=== PATIENT | male | born 1985 | race Caucasian/White ===

== ENCOUNTER 2019-08-11 18:41 | Emergency (ER) | payer SELFPAY ==
--- NOTE | 2019-08-11 18:42 | XR_ITS ---
WS: [id number] PROCEDURE: XR chest 2V* [id number] CLINICAL INFORMATION: cough COMPARISON: April 23, 2018 FINDINGS: Shallow inspiration. Heart: Cardiomegaly. Lungs: Lungs are clear. No consolidation or pleural fluid. Bones: Normal visualized bony structures. XR/XR chest 2V* [id number] IMPRESSION: Cardiomegaly. No acute chest findings.
[2019-08-11 18:47] VITALS: BP 169/89; PULSE 57; RESP 18; TEMP 36.7; O2SAT 98; BMI 54.2
--- NOTE | 2019-08-11 18:56 | ED_ITS ---
Entered by Marleny Gill, acting as scribe for Ericka Griffin HPI - General Adult General: Chief complaint: General Medical Stated complaint: PRESSURE BEHIND R EYE/COUGH Time Seen by Provider: 08/11/19 18:56 History of Present Illness: HPI narrative: 34 yo m came to the er for pressure behind rt eye and cough. Onset was 1 week ago. Pt states that he has no history of headaches or migranes. Pt states that this has been going on for a week. Pt states that it is a throbbing pain. Pt states that he is light sensative. MD complaint: headache and cough Onset (ago): week(s) (1 week ago) Location: head and chest Radiation: non-radiation Severity: moderate Quality: other (throb) Pain Consistency: constant Relieving factors: none Exacerbating factors: none Associated symptoms: Reports cough; Deny chest pain, confusion, diaphoresis, dyspnea, headache(s), malaise, nausea, rash, palpitations, syncope or vomiting Treatments prior to arrival: none Review of Systems General: Reports: other (negative unless marked) Const: Denies: fever, chills, body aches, fatigue, malaise or diaphoresis Eyes: Denies: change in vision or blurry vision ENMT: Denies: throat pain, painful swallowing, hoarseness, ear pain, ear discharge, Change in hearing or nasal discharge Card: Denies: chest pain, palpitations, irregular heart rhythm, syncope, pre- syncope, shortness of breath on exertion or shortness of breath when lying down Resp: Denies: shortness of breath, productive cough, non-productive cough, wheezing, coughing up blood or chest congestion GI: Denies: abdominal pain, nausea, vomiting, vomiting blood, coffee grounds in vomit, diarrhea, constipation, cramping, blood in stool or black tarry stool : Denies: flank pain, difficulty urinating, painful urination, urinary frequency, urinary urgency, decreased urine ouput, urinary incontinence or blood in urine Musc: Denies: neck pain, back pain, extremity pain, extremity swelling, joint pain, joint swelling, joint warmth or joint stiffness Skin/Breast: Denies: rash, skin tenderness or yellow skin Neuro: Denies: headache, numbness in extremities, weakness in extremities, changes in sensation, lack of coordination, difficulty walking, dizziness, vertigo or confusion Endo: Denies: excessive thirst, tired all the time, cold intolerance, excessive sweating, flushing or hot flashes Jorge L/Lymph: Denies: easy bruising, easy bleeding, petechiae or enlarged lymph nodes All/Imm: Denies: hives, throat swelling, tongue swelling, facial swelling or acute wheezing PFSH ED PFSH: Statuses (acute, chronic, etc) shown below reflect problem list status as previously entered and may not be historically accurate Medical History Diabetes mellitus (Acute) Fibromyalgia (Acute) Gastroenteritis (Acute) Hypertension (Acute) Peptic ulcer disease (Acute) Social History Smoking and tobacco status: never smoked Physical Exam Const: COMMON NORMALS: no apparent distress, oriented x3, no limitations, healthy appearing and well nourished EXAM LIMITATIONS: no altered mental status GENERAL APPEARANCE: cooperative, well kempt and well developed ORIENTATION/CONSCIOUSNESS: Yes awake HENMT: COMMON NORMALS: normocephalic, head/scalp atraumatic, hearing grossly normal bilaterally, external ears normal, EAC's normal, external nose normal and moist oral mucous membranes HEAD & SCALP: normal to inspection, normocephalic and atraumatic FACE & SINUS: normal facial exam and face symmetric NOSE: external nose normal and nares normal EXTERNAL EAR: Yes external ears normal EXTERNAL AUDITORY CANAL: EAC's normal MOUTH: oral and palatal mucosa normal and tongue normal Eye: COMMON NORMALS: PERRL, EOMs intact bilaterally, conjunctivae normal and no scleral icterus GENERAL EYE: normal appearance of both eyes and normal light reflex CONJUNCTIVA: Yes conjunctivae normal SCLERA: sclerae normal CORNEA: Yes corneas normal PUPIL: Yes PERRL DIRECT OPHTHALMOSCOPY: Yes normal light reflex Neck/C-Spine: COMMON NORMALS: full ROM, no lymphadenopathy, supple, no meningeal signs and no JVD GENERAL: Yes normal visual inspection and Yes trac hea midline CERVICAL SPINE: Yes cervical ROM normal Chest: COMMONS NORMALS: inspection of chest normal and palpation of chest normal Resp: COMMON NORMALS: normal respiratory effort, no retractions, no use of accessory muscles and clear to auscultation bilaterally EFFORT & INSPECTION: Yes able to speak in complete sentences AUSCULTATION: clear to auscultation bilaterally Cardio: COMMON NORMALS: no JVD, regular rate, regular rhythm, S1 normal heart sound, S2 normal heart sound, no gallops, no clicks, no murmurs and no rub JUGULAR VENOUS DISTENTION: no JVD RATE: regular rate RHYTHM: regular rhythm HEART SOUNDS: S1 normal and S2 normal GI: COMMON NORMALS: soft to palpation, non-tender, no hepatosplenomegaly and no masses INSPECTION: Yes normal to inspection PALPATION: Yes soft and Yes no hepatosplenomegaly : COMMON NORMALS: Yes no CVA tenderness BLADDER/KIDNEY EXAM: Yes no CVA tenderness Back/Pelvis: COMMON NORMALS: no CVA tenderness, thoracic and lumbar spine normal to inspection, no thoracic nor lumbar tenderness and thoraco-lumbar ROM normal Extremity: COMMON NORMALS: normal to inspection, full ROM, normal capillary refill, no joint enlargement, no clubbing, cyanosis or edema and no calf tenderness Neuro: COMMON NORMALS: oriented x3, CN's II-XII intact bilaterally, moves all extremities, no focal motor deficits and no sensory deficits noted MENINGEAL SIGNS: Yes no meningeal signs Psych: COMMON NORMALS: mental status grossly normal, thought process normal, cooperative, affect normal, speech normal and activity/motor behavior normal APPEARANCE: Yes well kempt SPEECH: Yes normal speech THOUGHT PROCESS: normal thought process Skin: COMMON NORMALS: no rashes or lesions noted, skin turgor normal, no jaundice, no petechiae and no mottling GENERAL SKIN EXAM: no rashes or lesions noted and turgor normal Course ED course: 2124 -right eye pressure averages - 17.5 mmHg. Left eye in comparison is the same and normal. Vital Signs: Vital signs: Vital Signs Temperature 98.1 F 08/11/19 18:47 Pulse Rate 54 L 08/11/19 20:39 Respiratory Rate 16 08/11/19 20:39 Blood Pressure 147/64 08/11/19 20:39 Pulse Oximetry 100 08/11/19 20:39 MDM - General Adult MDM Narrative: Medical decision making narrative: Humble -Khadar is a 34-year-old male who comes in with a complaint of right-sided headache and eye discomfort. Differential includes cluster headache, glaucoma, migraine among many others. We will go ahead and treat his pain and evaluate for the underlying etiology. We will treat for cluster headache and migraine initially to see if that resolves his symptoms. Discharge -patient comes in with right-sided headache. He associated nausea and photophobia. Eye pressure is normal. CT scan reveals sinusitis. He is responded well to oxygen so there may be a cluster headache type component to this. His pain was better after Reglan and typical migraine medications. I wi ll treat him for his sinusitis but he does agree to return if the symptoms change or worsen. I see no life-threatening diagnoses such as meningitis, subarachnoid hemorrhage, temporal arteriolitis or other life or limb threatening diagnosis. Lab Data: Labs: Lab Results 08/11/19 08/11/19 08/11/19 Range/Units 19:23 19:23 20:11 WBC 9.0 (4.0-10.0) 10^3/ uL RBC 4.76 (4.1-5.3) 10^6/u L Hgb 13.4 (11.7-16.6) g/dL Hct 41.1 L (42.0-52.0) % MCV 86.3 (80-94) fL MCH 28.2 (28.0-34.0) pg MCHC 32.6 (30.0-36.0) g/dL RDW 13.5 (12.1-15.1) % Plt Count 310 (130-400) 10^3/c mm MPV 10.1 (7.4-10.4) fL Neut % (Auto) 73.0 % Lymph % (Auto) 18.4 % Maries % (Auto) 6.4 % Eos % (Auto) 1.3 % Baso % (Auto) 0.7 % Neut # (Auto) 6.6 (1.8-7.7) 10^3/u L Lymph # (Auto) 1.7 (0.8-4.8) 10^3/u L Maries # (Auto) 0.6 (0.2-0.9) 10^3/u L Eos # (Auto) 0.1 (0.0-0.8) 10^3/u L Baso # (Auto) 0.1 (0.0-0.1) 10^3/u L Nucleated RBC % (a uto) 0 % Nucleated RBCs # 0.0 /100WBC Sodium 133 L (136-145) mmol/L Potassium 4.3 (3.5-5.1) mmol/L Chloride 96 L (98-107) mmol/L Carbon Dioxide 24 (22-29) mmol/L Anion Gap 17.3 (5-19) BUN 9 (6-20) mg/dL Creatinine 0.6 L (0.7-1.2) mg/dL GFR Calculation 155.2 H (90-130) mL/min Glucose 339 H (74-109) mg/dL Calcium 9.6 (8.5-10.5) mg/dL Total Bilirubin 0.2 (0.15-1.2) mg/dL AST 22 (0-40) U/L ALT 26 (0-41) U/L Alkaline Phosphata se 34 L (40-130) IU/L Total Protein 7.2 (6.6-8.7) g/dL Albumin 4.4 (3.5-5.2) g/dL Globulin 2.8 (1.3-4.6) g/dL Urine Color Yellow (Yellow) Urine Appearance Clear (CLEAR) Urine pH 7 (5-7) Ur Specific Gravit y 1.015 (1.005-1.030) Urine Protein Neg (Negative) Urine Glucose (UA) 4+ H (Normal) Urine Ketones Negative (Negative) Urine Occult Blood Neg (Negative) Urine Nitrate Negative (Negative) Urine Bilirubin Neg (NEGATIVE) Urine Urobilinogen Norm (Negative) mg/dL Ur Leukocyte Linette ase Negative (Negative) Urine RBC None (0-2) /hpf Urine WBC 0-4 H (0-5) /hpf Ur Squamous Epith Cells Rare (0-5) Amorphous Sediment 2+ Urine Bacteria Trace (NONE) Discharge Plan Discharge Patient Disposition: Home, Self-Care Clinical Impression: Migraine Qualifiers: Migraine type: with aura Status migrainosus presence: without status migrainosus Intractability: not intractable Qualified Code(s): G43.109 - Migraine with aura, not intractable, without status migrainosus Sinusitis Qualifiers: Sinusitis location: maxillary Chronicity: acute Recurrence: recurrent Qualified Code(s): J01.01 - Acute recurrent maxillary sinusitis Condition: Stable Prescriptions: New amoxicillin 500 mg capsule 500 mg PO TID 10 Days Qty: 30 RF: 0 Discharge Orders: Discharge Order (Routine); Ordered 08/11/19 Ordered By: Ericka Griffin Referrals: Esthela Badillo, [employer] [Primary Care Provider] - 1-3 days Discharge Diet: Advance as tolerated Discharge Activity: Increase activity as tolerated Patient Instructions: Headache - Migraine (Adult), Cluster Headache (ED), Migraine Headache (ED), Acute Headache (ED) Activity Restrictions/Additional Instructions: Please return to the ER immediately for any of the signs or symptoms listed on your discharge instruction sheets, worsening/changing of your symptoms, you are not getting better as quickly as expected, or for ANY other cause or concerns. Discharge Date/Time: 08/11/19 20:40 Coding Level of Care Code ED Acute Coordinator for Chg Fwd Exam Problem Focused The documentation recorded by the Jairo brown Stephanie Lyn, accurately reflects the service I personally performed and the decisions made by me, Ericka Griffin Aug 11, 2019 18:41
--- NOTE | 2019-08-11 18:59 | PC.NURSE ---
patient c/o cough with green sputum, n/v green, right sided facial pressure
--- NOTE | 2019-08-11 19:02 | CTR_ITS ---
PROCEDURE INFORMATION: Exam: CT Head Without Contrast Exam date and time: 08/11/2019 7:07 PM Age: 34 years old Clinical indication: Pain; Headache not specified; Additional info: Dorsey/ams TECHNIQUE: Imaging protocol: Computed tomography of the head without contrast. Total DLP: 919.06 mGy-cm Radiation optimization: All CT scans at this facility use at least one of these dose optimization techniques: automated exposure control; mA and/or kV adjustment per patient size (includes targeted exams where dose is matched to clinical indication); or iterative reconstruction. COMPARISON: CT head wo con* [id number] 04/26/2017 10:18 PM FINDINGS: Brain: Normal. No hemorrhage. Unremarkable white matter. No mass effect. Ventricles: Normal. No ventriculomegaly. Bones/joints: Unremarkable. No acute fracture. Sinuses: Severe right maxillary sinus disease. Mild left maxillary sinus disease. Severe right ethmoid sinus disease. Moderate right frontal sinus disease. Moderate to severe bilateral paranasal sinus disease. Mastoid air cells: Visualized mastoid air cells are well aerated. Soft tissues: Unremarkable. CT/CT head wo con* [id number] IMPRESSION: 1. Moderate to severe bilateral paranasal sinus disease. 2. No acute intracranial findings. Radiation Dose CTDIVOL = (mGy): DLP = 919.06 (mGy-cm)
[2019-08-11 19:29] LABS: Basophils # 0.1 10^3/uL (0.0-0.1); Basophils % 0.7 %; Eosinophils # 0.1 10^3/uL (0.0-0.8); Eosinophils % 1.3 %; Hematocrit 41.1 % (42.0-52.0); Hemoglobin 13.4 g/dL (11.7-16.6); Lymphocytes # 1.7 10^3/uL (0.8-4.8); Lymphocytes % 18.4 %; Mean Corpuscular HGB Conc 32.6 g/dL (30.0-36.0); Mean Corpuscular Hemoglobin 28.2 pg (28.0-34.0); Mean Corpuscular Volume 86.3 fL (80-94); Mean Platelet Volume 10.1 fL (7.4-10.4); Monocytes # 0.6 10^3/uL (0.2-0.9); Monocytes % 6.4 %; Neutrophils # 6.6 10^3/uL (1.8-7.7); Nucleated Red Blood Cells % 0 %; Platelet Count 310 10^3/cmm (130-400); Red Blood Count 4.76 10^6/uL (4.1-5.3); Red Cell Distribution Width 13.5 % (12.1-15.1)
[2019-08-11] MEDS: ondansetron 2 mg/ML SDV 2 mL 4 MG IVP (19:30)
[2019-08-11] MEDS: sodium chloride 0.9% 1,000 ML 999 ML IV (19:30)
[2019-08-11] MEDS: metoclopramide 5 mg/mL SDV 2 mL 10 MG IV (19:30)
[2019-08-11 19:44] LABS: Alanine Aminotransferase 26 U/L (0-41); Albumin Level 4.4 g/dL (3.5-5.2); Alkaline Phosphatase 34 IU/L (40-130); Anion Gap 17.3 (5-19); Aspartate Amino Transferase 22 U/L (0-40); Blood Urea Nitrogen 9 mg/dL (6-20); Calcium 9.6 mg/dL (8.5-10.5); Carbon Dioxide 24 mmol/L (22-29); Chloride 96 mmol/L (98-107); Globulin 2.8 g/dL (1.3-4.6); Glomerular Filtration Rate 155.2 mL/min (90-130); Glucose 339 mg/dL (74-109); Potassium 4.3 mmol/L (3.5-5.1); Sodium 133 mmol/L (136-145); Total Bilirubin 0.2 mg/dL (0.15-1.2); Total Protein 7.2 g/dL (6.6-8.7)
[2019-08-11] MEDS: ketorolac 30 mg/mL INJ 10 MG IVP (20:13)
[2019-08-11 20:39] VITALS: BP 147/64; PULSE 54; RESP 16; O2SAT 100
[2019-08-11 20:41] LABS: Protein Urine Neg (Negative); Specific Gravity, Urine 1.015 (1.005-1.030); Urine Appearance Clear (CLEAR); Urine Color Yellow (Yellow); pH Urine 7 (5-7)
[2019-08-11 20:42] LABS: Add Urine Culture? No; Amorphous Sediment Urine 2+; Bacteria Urine TRACE; Bilirubin Urine Neg (NEGATIVE); Blood Urine Neg (Negative); Glucose Urine UA 4+ (Normal); Ketones Urine Negative (Negative); Leukocyte Esterase Urine Negative (Negative); Nitrate Urine Negative (Negative); Squamous Epithelial Cell Urine RARE (0-5); Urobilinogen Urine Norm (Negative); WBC Urine 0-4 /hpf (0-5)
== END 2019-08-11 20:40 | disposition home or self-care (01) ==
PROVIDERS: Emergency Provider Emergency Medicine; PCP Nurse Practitioner Family
DX: G43.109 Migraine with aura, not intractable, without status migrainosus (principal); J01.01 Acute recurrent maxillary sinusitis; E11.9 Type 2 diabetes mellitus without complications; I10 Essential (primary) hypertension
CPT/HCPCS: 70450; 71046; 80053; 81001; 85025; 96360; 96365; 96374; 99282; J0131; J1885; J2405; J2765; J7030

== ENCOUNTER 2020-02-07 16:25 | Emergency (ER) | payer SELFPAY ==
[2020-02-07 16:52] VITALS: BP 162/87; PULSE 57; RESP 15; TEMP 36.7; O2SAT 94; BMI 61.0
--- NOTE | 2020-02-07 17:05 | ED_ITS ---
HPI - Extremity Problem General: Chief complaint: Extremity Problem,Nontraumatic Stated complaint: right arm pain Time Seen by Provider: 02/07/20 17:05 History of Present Illness: HPI Narrative: Patient is a 35-year-old male who comes to the ED with right arm pain. Pain started just prior to arrival. Patient says he started feeling of muscle cramp move up his entire right arm when reaching for remote, so he straighten his arm out to help relieve muscle cr amp. He then wrapped his right arm along the straight stick-like object to splinted and to keep the arm straight. Patient reports just feeling a pop in right elbow while his arm was straight. He comes to the ED now with pain in his right elbow and and right wrist. He reports pain with any movement. Patient also reports having chronic right shoulder pain, but states this is different pain than his right shoulder pain. Associated symptoms: Deny chest pain, fever(s) or rash Review of Systems Const: Denies: fever(s), chills or fatigue Eyes: Denies: change in vision or eye discomfort ENMT: Denies: throat pain, odynophagia, nasal discharge or nasal congestion Card: Denies: chest pain, palpitations, edema, swelling of feet/ankles, dyspnea on exertion or orthopnea Resp: Denies: dyspnea, productive cough or non-productive cough GI: Denies: abdominal pain, nausea, vomiting, diarrhea, constipation or hematochezia : Denies: flank pain, difficulty urinating, dysuria or hematuria Musc: Reports: extremity pain (Right arm muscle pain.); Denies: neck pain, back pain or extremity swelling Skin/Breast: Denies: rash or new lesions Neuro: Denies: headache(s), numbness in extremities or weakness in extremities [facility] PFSH: Medical History Diabetes mellitus Fibromyalgia Gastroenteritis Hypertension Peptic ulcer disease Social History Smoking and tobacco status: never smoked Alcohol intake: never Substance/Drug Use: never Physical Exam Const: COMMON NORMALS: no acute distress, patient oriented x3 and alert GENERAL APPEARANCE: cooperative and comfortable NUTRITIONAL APPEARANCE: obese HENMT: COMMON NORMALS: normocephalic HEAD & SCALP: normocephalic MOUTH: Normal oral and palatal mucosa present THROAT: posterior oropharynx normal and uvula midline Neck/C-Spine: COMMON NORMALS: supple GENERAL: Yes normal visual inspection Resp: COMMON NORMALS: normal respiratory effort, No retractions, No use of accessory muscles and clear to auscultation bilaterally AUSCULTATION: clear to auscultation bilaterally Cardio: COMMON NORMALS: regular rate, regular rhythm, S1 normal heart sound present, S2 normal heart sound present, No gallops present (Cardio), No clicks present (Cardio), No murmurs present (Cardio) and Peripheral pulses 2+ th roughout RATE: regular rate RHYTHM: regular rhythm HEART SOUNDS: S1 normal heart sound present and S2 normal heart sound present PERIPHERAL PULSES: Peripheral pulses 2+ throughout GI: COMMON NORMALS: Normal to inspection, nondistended, normoactive bowel sounds present, Soft to palpation, non-tender and no masses PALPATION: Yes Soft to palpation : COMMON NORMALS: Yes no CVA tenderness BLADDER/KIDNEY EXAM: Yes no CVA tenderness Back/Pelvis: COMMON NORMALS: no CVA tenderness Extremity: COMMON NORMALS: normal to inspection and no pedal edema OTHER: Right arm was normal to inspection. Radial pulse 2+ and sensation was intact throughout the arm. No tenderness upon palpation on the arm. No ecchymosis, er ythema or warmth. Patient states he cannot move his arm because of the muscle pain. Neuro: COMMON NORMALS: patient oriented x3 and moves all extremities SENSORIUM/ORIENTATION: Yes alert Skin: COMMON NORMALS: no rashes or lesions noted GENERAL SKIN EXAM: no rashes or lesions noted and dry skin Course Vital Signs: Vital signs: Vital Signs Temperature 98.0 F 02/07/20 16:52 Pulse Rate 57 L 02/07/20 16:52 Respiratory Rate 15 02/07/20 16:52 Blood Pressure 162/87 02/07/20 16:52 Pulse Oximetry 94 02/07/20 16:52 MDM - Extremity (Nontraumatic) MDM Narrative: Medical decision making narrative: Patient is a 35-year-old male comes to the ED with right arm pain. He denies any trauma, fall or injury to cause pain. He described pain in right arm as a muscle cramp. Exam of right arm was normal. Ultrasound of right upper extremity showed no blood clots or DVTs. X-ray of right elbow and right wrist showed no acute fractures or findings. Patient diagnosed with right arm pain and was given a dose of Toradol and Norflex while here in the unit. He was told to rest it and follow-up with PCP in 7 to 10 days for reevaluation. I sent him home with a prescription for Robaxin. Return to the ED if symptoms worsen. Patient understood and agreed with plan. Imaging Data^: US Vascular: Attestation: I personally reviewed and interpreted this imaging study as follows: Radiologist's impression: Ultrasound of right upper extremity prelim report- showed no blood clots or DVTs. Xray Ortho: Attestation: I personally reviewed and interpreted this imaging study as follows: My impression: X-ray of elbow and wrist of right arm showed no acute fractures or findings. Discharge Plan Discharge Patient Disposition: Home, Self-Care Clinical Impression: Arm pain, right Condition: Stable Prescriptions: New Robaxin-750 750 mg tablet 750 mg PO Q8H Qty: 15 RF: 0 No Action ibuprofen 200 mg Tablet 200 mg PO Q6H PRN (Reason: Pain) RF: 0 Discharge Orders: Discharge Order (Routine); Ordered 02/07/20 Ordered By: Aly Pond Referrals: FREDA Badillo, [place] [Primary Care Provider] - Discharge Diet: Regular Discharge Activity: Increase activity as tolerated Patient Instructions: Muscle Cramp (ED) Activity Restrictions/Additional Instructions: Follow-up with medical provider as directed in 5-7 days. Take medications as prescribed. I am sending you home with a prescription for muscle relaxer. Remember muscle relaxers can cause some drowsiness so take at night before bed and if you use during the day use with caution. Drink plenty of fluids and stay hydrated. Return to the ER or your medical provider if condition worsens. Please read and understand discharge instructions. If any questions, please ask. Discharge Date/Time: 02/07/20 19:56 Coding Level of Care Code ED Mortgage Counselor for Mendez Hargrove Exam Comprehensive
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
--- NOTE | 2020-02-07 17:31 | XRR_ITS ---
PROCEDURE INFORMATION: Exam: XR Right Elbow Exam date and time: 02/07/2020 6:40 PM Age: 35 years old Clinical indication: Right; Patient HX: C/O RT elbow and wrist pain. [place] a pop TECHNIQUE: Imaging protocol: XR Right elbow. Views: 3 or more views. COMPARISON: No relevant prior studies available. FINDINGS: Bones/joints: No acute bony injury or malalignment. Soft tissues: Unremarkable soft tissues. XR/XR elbow RT min 3V* [id number] IMPRESSION: No acute bony injury or malalignment.
--- NOTE | 2020-02-07 17:31 | USCV_ITS ---
Khadar Wolfe II Age: 35 Gender: M : 1985 Exam Date: 02/07/2020 18:01 Ordering Phys: Aly Pond Technologist: Sharad Moreno [place] [facility] [place]: RT ARM PAIN HISTORY: Upper extremity pain. PROCEDURES: Venous duplex imaging was performed in only the right upper extremity. The following venous structures were evaluated: internal jugular vein, subclavian vein, axillary vein, and brachial veins. In addition, the basilic vein, cephalic vein, radial vein, and ulnar vein. Serial compression, augmentation maneuvers, and spectral Doppler flow evaluation were performed. FINDINGS: No evidence of deep vein thrombosis or superficial thrombophlebitis in the right upper extremity. CONCLUSIONS No evidence of venous thrombosis in the above-mentioned identifiable veins Dr Tania Mathews MD [facility] (Electronically Signed) Final Date: 08 February 2020 08:51 S
[2020-02-07] MEDS: HYDROcodone-acetaminophen 7.5-325 mg Tablet 1 TAB PO (18:10)
[2020-02-07] MEDS: orphenadrine 30 mg/mL Inj 2 mL 60 MG IM (19:43)
[2020-02-07] MEDS: ketorolac 60 mg/2 mL INJ IM (19:45)
== END 2020-02-07 19:56 | disposition home or self-care (01) ==
PROVIDERS: Emergency Provider Physician Assistant; PCP Nurse Practitioner Family
DX: M79.601 Pain in right arm (principal); E11.9 Type 2 diabetes mellitus without complications; I10 Essential (primary) hypertension
CPT/HCPCS: 12345; 73080; 73110; 93971; 96372; 99281; 99283; J1885; J2360

== ENCOUNTER → 2020-09-19 13:25 | Outpatient (BNVA) | payer OTHER, SELFPAY | PROVIDERS: PCP Nurse Practitioner Family; Visit Provider Nurse Practitioner Family | DX: Z20.828 Contact with and (suspected) exposure to other viral communicable diseases (principal) | CPT/HCPCS: 87635 ==

== ENCOUNTER 2021-03-31 10:36 | Emergency (ER) | payer SELFPAY ==
[2021-03-31 10:54] VITALS: BP 171/97; PULSE 59; RESP 18; TEMP 36.9; O2SAT 96; BMI 51.2
[2021-03-31 11:03] VITALS: BP 171/97; PULSE 56; RESP 18; O2SAT 96
--- NOTE | 2021-03-31 11:28 | CTR_ITS ---
PROCEDURE INFORMATION: Exam: CT Abdomen And Pelvis Without Contrast Exam date and time: 03/31/2021 11:28 AM Age: 36 years old Clinical indication: Other: Hematuria TECHNIQUE: Imaging protocol: Computed tomography of the abdomen and pelvis without contrast. Radiation optimization: All CT scans at this facility use at least one of these dose optimization techniques: automated exposure control; mA and/or kV adjustment per patient size (includes targeted exams where dose is matched to clinical indication); or iterative reconstruction. COMPARISON: CR XR chest 2V* [id number] 08/11/2019 7:06 PM RADIATION DOSE METRICS: Total DLP (mGy-cm): 2177.04 FINDINGS: Liver: Fatty liver. No liver mass seen. Gallbladder and bile ducts: Normal. No calcified stones. No ductal dilation. Pancreas: Normal. No ductal dilation. Spleen: Normal. No splenomegaly. Adrenal glands: Normal. No mass. Kidneys and ureters: There is a 1.5 cm cyst in the upper pole of the left kidney. There is a punctate nonobstructing calcification in the right kidney. There is no hydronephrosis or hydroureter. Stomach and bowel: Unremarkable. No obstruction. No mucosal thickening. Appendix: The appendix is identified and is normal. Intraperitoneal space: Unremarkable. No free air. No significant fluid collection. Vasculature: Unremarkable. No abdominal aortic aneurysm. Lymph nodes: Unremarkable. No enlarged lymph nodes. Urinary bladder: Unremarkable as visualized. Reproductive: Unremarkable as visualized. Bones/joints: Unremarkable. No acute fracture. Soft tissues: Unremarkable. CT/CT kidney stone [id number] IMPRESSION: 1. No acute abnormality. 2. Nephrolithiasis with a punctate nonobstructing calcification in the right kidney. 3. Probable cyst in the upper pole of the left kidney measuring 1.5 cm in diameter. 4. Fatty liver. COMMENTS: Consistent with the [employer]'s Incidental Findings Committee white paper (J Am Ammon Radiol 2018): Any incidental renal lesion less than 1 cm or classified as too small to characterize, or any incidental cystic renal lesion characterized as simple-appearing, is likely benign. No follow-up imaging is recommended for these lesions per consensus recommendations based on imaging criteria. Radiation Dose CTDIVOL = (mGy): DLP = 2177.04 (mGy-cm)
--- NOTE | 2021-03-31 11:45 | ED_ITS ---
HPI - Male Genitourinary General: Chief complaint: Urogenital-Male Stated complaint: PAINFUL BURNING ITCHY URINATION WITH BLEEDING Time Seen by Provider: 03/31/21 10:55 History of Present Illness: HPI Narrative: Patient states he thinks he has kidney stones. States that he has some bleeding from them his penis. Says he passed some kidney stones here in the last 3 months and did not see a primary care in ER but he said he could hear the cklink sound of the stones in the toilet. Patient denies ever have sexual encounters life and denies mechanical trauma. Does have some whitish material 10 of his penis Complaint: penile discharge and dysuria Onset (ago): hour(s) Duration: constant Location: penis Radiation: right flank and left flank Severity: mild Severity scale (1-10): 1 Associated symptoms: Reports dysuria and hematuria; Deny nausea or vomiting Review of Systems Const: Denies: fever(s), chills or body aches Eyes: Denies: change in vision or blurry vision ENMT: Denies: throat pain or nasal congestion Card: Denies: chest pain or dyspnea on exertion Resp: Denies: dyspnea, productive cough or non-productive cough GI: Denies: abdominal pain, nausea or vomiting : Reports: flank pain, dysuria and hematuria; Denies: difficulty urinating or urinary frequency Musc: Reports: back pain (Chronic); Denies: extremity pain Skin/Breast: Denies: rash Neuro: Denies: headache(s) Psych: Denies: anxiety or depression Jorge L/Lymph: Denies: easy bruising PFSH ED PFSH: Medical History (Updated 03/31/21 @ 13:27 by PARIS Goodwin) Diabetes mellitus Fibromyalgia Gastroenteritis Hypertension Peptic ulcer disease Social History Smoking and tobacco status: never smoked Alcohol intake: never Physical Exam Const: COMMON NORMALS: no acute distress, average body habitus and patient oriented x3 HENMT: COMMON NORMALS: normocephalic HEAD & SCALP: normal to inspection and normocephalic FACE & SINUS: normal facial exam Eye: COMMON NORMALS: conjunctivae normal GENERAL EYE: appearance normal, both eyes and all related structures CONJUNCTIVA: Yes conjunctivae normal Neck/C-Spine: COMMON NORMALS: no JVD Chest: COMMONS NORMALS: normal inspection of the chest Resp: COMMON NORMALS: normal respiratory effort Cardio: COMMON NORMALS: no JVD, regular rate and regular rhythm RATE: regular rate RHYTHM: regular rhythm GI: INSPECTION: Yes normal to inspection (Obese) : BLADDER/KIDNEY EXAM: Yes CVA tenderness bilateral Back/Pelvis: GENERAL BACK: Yes CVA tenderness Extremity: COMMON NORMALS: normal to inspection and full ROM Neuro: COMMON NORMALS: patient oriented x3 Course Vital Signs: Vital signs: Vital Signs Temperature 98.5 F 03/31/21 10:54 Pulse Rate 56 L 03/31/21 13:57 Respiratory Rate 18 03/31/21 13:57 Blood Pressure 168/84 03/31/21 13:57 Pulse Oximetry 96 03/31/21 13:57 MDM - Male MDM Narrative: Medical decision making narrative: Patient with UTI and uncontrolled diabetes. Patient states he has not been able for to go to Dr. Get his medications but has been told opacities diabetic. CT renal did not show any stones in distal urinary bladder. Does have occult blood in each kidney. Patient does have a job which she said he was supposed be provided insurance that 90 days any his past that so is not checked with human resources so we will do that this week and see about getting appoint with Dr. Villalba at [facility]. Patient encouraged to follow diabetic diet take medication as directed follow-up and get a repeat urine sample done if he has any worsening symptoms he can return here. Patient had no further questions. Lab Data: Labs: Lab Results 03/31/21 03/31/21 Range/Units 12:03 12:49 POC Glucose 278 H (70-110) mg/dL Urine Color Yellow (Yellow) Urine Appearance Cloudy (CLEAR) Urine pH 5 (5-7) Ur Specific Gravit y 1.020 (1.005-1.030) Urine Protein Neg (Negative) Urine Glucose (UA) 4+ H (Normal) Urine Ketones 1+ H (Negative) Urine Blood 2+ H (Negative) Urine Nitrate Negative (Negative) Urine Bilirubin Neg (Negative) Urine Urobilinogen Norm (Negative) mg/dL Ur Leukocyte Linette ase Trace H (Negative) Urine RBC 5-10 H (0-2) /hpf Urine WBC 80-100 H (0-5) /hpf Ur Squamous Epith Cells Rare (0-5) /hpf Amorphous Sediment Not Reportable Urine Bacteria 4+ H (NONE) /hpf Urine Mucus 1+ /hpf Discharge Plan Discharge Patient Disposition: Home Clinical Impression: Acute UTI Diabetes mellitus type 2, uncontrolled Qualifiers: Glycemic state: with hyperglycemia Qualified Code(s): E11.65 - Type 2 diabetes mellitus with hyperglycemia Condition: Stable Prescriptions: New cephalexin 500 mg capsule 500 mg PO Q8H 7 Days Qty: 21 RF: 0 metformin 500 mg tablet 500 mg PO BID Qty: 20 RF: 0 No Action ibuprofen 200 mg Tablet 200 mg PO Q6H PRN (Reason: Pain) RF: 0 Robaxin-750 750 mg tablet 750 mg PO Q8H Qty: 15 RF: 0 Discharge Orders: Discharge ED (Routine); Ordered 03/31/21 Ordered By: Julius Kincaid Referrals: FREDA Badillo, PARIS [Primary Care Provider] - Discharge Diet: As Directed Discharge Activity: Increase activity as tolerated Patient Instructions: Diabetes and Diet, Urinary Tract Infection in Men (ED), Diabetes Mellitus Type 2 in Adults (ED) Activity Restrictions/Additional Instructions: Follow-up with medical provider as directed. Take medications as prescribed. Return to the ER or your medical provider if condition worsens. Please read and understand discharge instructions. If any questions ask please. It is very important that you get in with your primary care provider here in the next week or 2. Get your blood sugars under control. Take your medication. Check your sugars with a meter at home. Get a repeat on your urine to make sure infection is gone away. Dr. Villalba at [facility] [place] is excepting new patients. Coding Level of Care Code ED Escrow Closer for Mendez Harg[place] Exam Comprehensive
[2021-03-31 12:02] VITALS: BP 170/99; PULSE 58; RESP 18; O2SAT 95
[2021-03-31 12:41] LABS: Glucose Urine UA 4+ (Normal); Ketones Urine 1+ (Negative); Protein Urine Neg (Negative); Urine Appearance Cloudy (CLEAR); Urine Color Yellow (Yellow); pH Urine 5 (5-7)
[2021-03-31 12:42] LABS: Add Urine Microscopic? YES; Bilirubin Urine Neg (Negative); Blood Urine 2+ (Negative); Leukocyte Esterase Urine Trace (Negative); Nitrate Urine Negative (Negative); Urobilinogen Urine Norm (Negative)
[2021-03-31 12:44] LABS: Add Urine Culture? Yes; Bacteria Urine 4+ /hpf; Mucus Urine 1+ /hpf; Squamous Epithelial Cell Urine RARE /hpf (0-5); WBC Urine 80-100 /hpf (0-5)
[2021-03-31 12:53] LABS: Glucose Point of Care 278 mg/dL (70-110)
[2021-03-31 13:08] VITALS: BP 152/77; PULSE 50; RESP 18; O2SAT 97
[2021-03-31] MEDS: cephALEXin 500 mg Capsule PO (13:56)
[2021-03-31 13:57] VITALS: BP 168/84; PULSE 56; RESP 18; O2SAT 96
== END 2021-03-31 13:57 | disposition home or self-care (01) ==
PROVIDERS: Emergency Provider Nurse Practitioner Family; PCP Nurse Practitioner Family
DX: N39.0 Urinary tract infection, site not specified (principal); E11.65 Type 2 diabetes mellitus with hyperglycemia; I10 Essential (primary) hypertension
CPT/HCPCS: 36416; 74176; 81001; 82962; 87086; 87491; 87591; 99283

== ENCOUNTER 2021-12-29 14:55 | Emergency (ER) | payer SELFPAY ==
[2021-12-29 16:05] VITALS: BP 181/110; PULSE 54; RESP 16; TEMP 36.4; O2SAT 96; BMI 48.5
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
[2021-12-29 19:12] VITALS: RESP 20
[2021-12-29] MEDS: morphine 4 mg/mL SDV 1 mL IM (19:12)
[2021-12-29] MEDS: ondansetron 2 mg/ML SDV 2 mL 4 MG IM (19:13)
[2021-12-29 21:14] VITALS: BP 138/82; PULSE 48; RESP 18; O2SAT 96
== END 2021-12-29 21:13 | disposition home or self-care (01) ==
PROVIDERS: Emergency Provider Emergency Medicine
DX: S29.012A Strain of muscle and tendon of back wall of thorax, initial encounter (principal); V89.2XXA Person injured in unspecified motor-vehicle accident, traffic, initial encounter; Y92.410 Unspecified street and highway as the place of occurrence of the external cause
CPT/HCPCS: 71045; 72128; 72131; 74176; 96372; 99284; J2270; J2405

== ENCOUNTER 2022-05-22 16:24 | Emergency (ER) | payer MEDICAID, SELFPAY ==
[2022-05-22 16:30] VITALS: BP 170/88; PULSE 59; RESP 20; TEMP 37.7; O2SAT 98; BMI 45.8
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
--- NOTE | 2022-05-22 17:25 | ED_ITS ---
HPI - Neuro Symptoms/Deficit General: Chief Complaint: Eye Problems Stated Complaint: Possible stroke, sent from eye dr Time Seen by Provider: 05/22/22 17:24 History of Present Illness: Mr. Wolfe is a 37-year-old gentleman with history of hypertension and diabetes presenting to the emergency department due to visual disturbance and headache. Onset of symptoms was acute approximately 3 days ago. He endorses double vision which is not improved by closing either eye associated with posterior headache and unsteady feeling. He has felt nauseous secondary to his lightheaded and unsteady feeling however does not have significant abdominal pain. Intensity symptoms is moderate to severe. Course has persisted. Apparently he was seen by an eye doctor today and referred to the ER for further management as the patient's eyes did not appear to be the problem. Onset (ago): day(s) Severity: moderate Exacerbating factors: other On Anticoagulants: No Review of Systems General: Reports: 10 or more systems reviewed and unremarkable except in HPI and below PFSH ED PFSH: Medical History (Updated 05/30/22 @ 00:00 by ) Diabetes mellitus Fibromyalgia Gastroenteritis Hypertension Peptic ulcer disease Social History Smoking and tobacco status: never smoked Alcohol intake: never Physical Exam Const: COMMON NORMALS: patient oriented x3 and alert GENERAL APPEARANCE: cooperative and well developed HENMT: COMMON NORMALS: normocephalic and atraumatic HEAD & SCALP: normocephalic and atraumatic THROAT: posterior oropharynx normal Eye: COMMON NORMALS: conjunctivae normal CONJUNCTIVA: Yes conjunctivae normal SCLERA: sclerae normal Neck/C-Spine: COMMON NORMALS: supple GENERAL: Yes trachea midline Resp: COMMON NORMALS: normal respiratory effort EFFORT & INSPECTION: Yes able to speak in complete sentences Cardio: COMMON NORMALS: regular rate and regular rhythm RATE: regular rate RHYTHM: regular rhythm GI: COMMON NORMALS: Soft to palpation PALPATION: Yes Soft to palpation and No Tenderness to palpation present (GI) PERCUSSION: normal to percussion Extremity: GENERAL: Yes normal exam except as noted and No edema Neuro: COMMON NORMALS: patient oriented x3, CN's II-XII intact bilaterally, m oves all extremities, no focal motor deficits and no sensory deficits noted SENSORIUM/ORIENTATION: Yes alert and No Orientation impaired Psych: COMMON NORMALS: mental status grossly normal and Normal thought process present THOUGHT PROCESS: Normal thought process present Course Vital Signs: Vital signs: Vital Signs Temperature 99.9 F H 05/22/22 16:30 Pulse Rate 55 L 05/22/22 21:44 Respiratory Rate 16 05/22/22 21:44 Blood Pressure 129/55 05/22/22 21:44 Pulse Oximetry 98 05/22/22 21:44 Oxygen Delivery Me thod 05/22/22 16:30 MDM - Neuro Symptoms/Deficit Medical Decision Making 37-year-old gentleman presenting with visual disturbance. No other neurologic deficits appreciated on exam. EKG shows sinus rhythm with nonspecific ST segment abnormalities, no STEMI. No significant hematologic abnormality. Metabolic panel with mild hyperglycemia though no evidence of DKA. CT head negative for acute intracranial pathology or evidence of stroke. Given duration of symptoms and extent of symptoms I would expect that CT would show evidence of pathology if central line cause. Somewhat improved with migraine cocktail and IV fluids. Exact etiology of patient's symptoms is unclear though may be related to complex headache. The results of ED evaluation were discussed with the patient including prescriptions and/or symptomatic cares (if applicable) including appropriate and responsible use, followup plan, and return precautions. The patient verbalized understanding and felt safe for discharge. Medical Records I reviewed the patient's medical records. Lab Data I reviewed the patient's lab results. : 05/22/22 18:33 05/22/22 18:[address] 05/22/22 16:59 IMPRESSION: No acute intracranial abnormality. Laboratory Results WBC 5.7 10^3/uL (4.0-10.0) 05/22/22 18: RBC 4.86 10^6/uL (4.1-5.3) 05/22/22 18:33 Hgb 14.0 g/dL (11.7-16.6) 05/22/22 18: Hct 42.7 % (42.0-52.0) 05/22/22 18: MCV 87.9 fl (80-94) 05/22/22 18:33 MCH 28.8 pg (28.0-34.0) 05/22/22 18: MCHC 32.8 g/dL (30.0-36.0) 05/22/22 18: RDW 13.8 % (12.1-15.1) 05/22/22 18:33 Plt Count 236 10^3/cmm (130-400) 05/22/22 18: MPV 10.3 fL (7.4-10.4) 05/22/22 18:33 Neut % (Auto) 80.2 % 05/22/22 18: Lymph % (Auto) 13.2 % 05/22/22 18: [place] % (Auto) 5.6 % 05/22/22 18: Eos % (Auto) 0.2 % 05/22/22 18: Baso % (Auto) 0.3 % 05/22/22 18: Neut # (Auto) 4.60 10^3/uL (1.8-7.7) 05/22/22 18: Lymph # (Auto) 0.8 10^3/uL (0.8-4.8) 05/22/22 18: [place] # (Auto) 0.3 10^3/uL (0.2-0.9) 05/22/22 18: Eos # (Auto) 0.0 10^3/uL (0.0-0.8) 05/22/22 18: Baso # (Auto) 0.0 10^3/uL (0.0-0.1) 05/22/22 18: Nucleated RBC % (auto) 0 % 05/22/22 18: Nucleated RBCs # 0.0 /100WBC 05/22/22 18:33 Sodium 132 mmol/L (136-145) L 05/22/22 18: Potassium 3.9 mmol/L (3.5-5.1) 05/22/22 18: Chloride 96 mmol/L (98-107) L 05/22/22 18:33 Carbon Dioxide 25 mmol/L (22-29) 05/22/22 18: Anion Gap 14.9 (5-19) 05/22/22 18: BUN 5 mg/dL (6-20) L 05/22/22 18:33 Creatinine 0.6 mg/dL (0.7-1.2) L 05/22/22 18:33 GFR Calculation 152.4 mL/min (90-130) H 05/22/22 18: Glucose 141 mg/dL (65-115) H 05/22/22 18:33 POC Glucose 163 mg/dL (70-110) H 05/22/22 17:39 Calculated Osmolality 274 mOsm/kg (285-295) L 05/22/22 18:33 Calcium 9.4 mg/dL (8.5-10.5) 05/22/22 18:33 Total Bilirubin 0.3 mg/dL (0.15-1.2) 05/22/22 18:33 AST 19 U/L (0-40) 05/22/22 18:33 ALT 30 U/L (0-41) 05/22/22 18:33 Alkaline Phosphatase 34 U/L (40-130) L 05/22/22 18:33 Troponin T Baseline 10 ng/L (0-15) 05/22/22 18:33 Troponin T 120 Minute 10.65 ng/L (0-15) 05/22/22 20:10 Delta Troponin T 0.65 ABS# (0-10) 05/22/22 20:10 Total Protein 7.3 g/dL (6.6-8.7) 05/22/22 18:33 Albumin 4.5 g/dL (3.5-5.2) 05/22/22 18:33 Globulin 2.8 g/dL (1.3-4.6) 05/22/22 18:33 TSH 1.03 uIU/mL (0.27-4.20) 05/22/22 18:33 Discharge Plan Discharge Patient Disposition: Home Clinical Impression: Double vision with both eyes open, Headache, Dizziness Condition: Stable Prescriptions: New meclizine 25 mg tablet 25 mg PO TID PRN (Reason: dizziness) Qty: 10 0RF No Action metformin 500 mg tablet 500 mg PO BID Qty: 20 0RF ibuprofen 200 mg Tablet 200 mg PO Q6H PRN (Reason: Pain) Robaxin-750 750 mg tablet 750 mg PO Q8H Qty: 15 0RF methocarbamol 750 mg tablet 750 mg PO Q6H PRN (Reason: spasms) Qty: 20 0RF Naprosyn 500 mg tablet 500 mg PO BID PRN (Reason: pain) Qty: 20 0RF Discharge Orders: Discharge ED (Routine); Ordered 05/22/22 Ordered By: Kamron Hardy Discharge Diet: Usual diet Discharge Activity: Increase activity as tolerated Patient Instructions: Acute Headache (ED), Dizziness (ED), Diplopia (ED) Activity Restrictions/Additional Instructions: Thank you for visiting the emergency department. You were seen evaluated for headache, visual disturbance, dizziness. The exact cause of your symptoms is unclear though does not appear to need hospitalization at this time. I will message case management for follow-up. Please return to the emergency department for worsening symptoms, any new neurologic symptoms, or anything else that you are concerned about a feel needs emergency department evaluation. 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
--- NOTE | 2022-05-22 17:30 | ECG_ITS ---
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 Measurements Intervals [place] Rate: 58 P: 63 [place]: 158 QRS: 6 QRSD: 97 T: 1 QT: 426 QTc: 420 Interpretive Statements SINUS BRADYCARDIA POSSIBLE LEFT ATRIAL ENLARGEMENT [-0.1mV P-WAVE IN V1/V2] POSSIBLE RIGHT VENTRICULAR CONDUCTION DELAY [RSR (QR) IN V1/V2] POSSIBLE LEFT VENTRICULAR HYPERTROPHY [VOLTAGE CRITERIA PLUS LAE OR QRS WIDENING] No previous ECG available for comparison Electronically Signed On 05-23-2022 11:49:53 CDT by Aleida Betancourt M.D. [email or web address] community hospitalBeijing Her[facility] Advertisingwilson [facility] hospital.[employer]/store/OM/[id number]
[2022-05-22 17:42] LABS: Glucose Point of Care 163 mg/dL (70-110)
[2022-05-22 18:32] VITALS: BP 118/72; PULSE 77
[2022-05-22 18:34] VITALS: BP 168/69; PULSE 74; RESP 14; O2SAT 98
[2022-05-22] MEDS: diphenhydrAMINE 50 mg/mL SDV 1mL 25 MG IVP (18:38)
[2022-05-22] MEDS: sodium chloride 0.9% 1,000 ML 999 ML IV (18:38)
[2022-05-22] MEDS: metoclopramide 5 mg/mL SDV 2 mL 10 MG IVP (18:39)
[2022-05-22] MEDS: ketorolac 30 mg/mL INJ 15 MG IVP (18:39)
[2022-05-22 18:51] LABS: Basophils % 0.3 %; Eosinophils % 0.2 %; Hematocrit 42.7 % (42.0-52.0); Lymphocytes # 0.8 10^3/uL (0.8-4.8); Lymphocytes % 13.2 %; Mean Corpuscular HGB Conc 32.8 g/dL (30.0-36.0); Mean Corpuscular Hemoglobin 28.8 pg (28.0-34.0); Mean Corpuscular Volume 87.9 fl (80-94); Mean Platelet Volume 10.3 fL (7.4-10.4); Monocytes # 0.3 10^3/uL (0.2-0.9); Monocytes % 5.6 %; Neutrophils % 80.2 %; Nucleated Red Blood Cells % 0 %; Platelet Count 236 10^3/cmm (130-400); Red Blood Count 4.86 10^6/uL (4.1-5.3); Red Cell Distribution Width 13.8 % (12.1-15.1); White Blood Count 5.7 10^3/uL (4.0-10.0)
[2022-05-22 19:09] LABS: Troponin(5th) Baseline 10 ng/L (0-15)
[2022-05-22 19:17] LABS: Alanine Aminotransferase 30 U/L (0-41); Albumin Level 4.5 g/dL (3.5-5.2); Alkaline Phosphatase 34 U/L (40-130); Anion Gap 14.9 (5-19); Aspartate Amino Transferase 19 U/L (0-40); Blood Urea Nitrogen 5 mg/dL (6-20); Calcium 9.4 mg/dL (8.5-10.5); Carbon Dioxide 25 mmol/L (22-29); Chloride 96 mmol/L (98-107); Globulin 2.8 g/dL (1.3-4.6); Glomerular Filtration Rate 152.4 mL/min (90-130); Glucose 141 mg/dL (65-115); Osmolality Calculated 274 mOsm/kg (285-295); Potassium 3.9 mmol/L (3.5-5.1); Sodium 132 mmol/L (136-145); Thyroid Stimulating Hormone 1.03 uIU/mL (0.27-4.20); Total Bilirubin 0.3 mg/dL (0.15-1.2); Total Protein 7.3 g/dL (6.6-8.7)
[2022-05-22 19:30] VITALS: BP 133/56; PULSE 54; RESP 16; O2SAT 97
--- NOTE | 2022-05-22 19:30 | ECG_ITS ---
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 Measurements Intervals [place] Rate: 56 P: 60 ND: 154 QRS: 6 QRSD: 101 T: 4 QT: 498 QTc: 484 Interpretive Statements SINUS BRADYCARDIA POSSIBLE LEFT ATRIAL ENLARGEMENT [-0.1mV P-WAVE IN V1/V2] POSSIBLE RIGHT VENTRICULAR CONDUCTION DELAY [RSR (QR) IN V1/V2] POSSIBLE LEFT VENTRICULAR HYPERTROPHY [VOLTAGE CRITERIA PLUS LAE OR QRS WIDENING] Compared to ECG 05/22/2022 17:58:37 No significant changes Electronically Signed On 05-23-2022 11:54:40 CDT by Aleida Betancourt M.D. [id number]
[2022-05-22 20:00] VITALS: BP 138/57; PULSE 53; RESP 16; O2SAT 97
[2022-05-22 20:35] LABS: Troponin 5 2HR 10.65 ng/L (0-15)
[2022-05-22] MEDS: meclizine 25 mg tablet PO (20:51)
[2022-05-22 21:44] VITALS: BP 129/55; PULSE 55; RESP 16; O2SAT 98
[2022-05-22 21:49] LABS: Troponin 5 2HR Delta 0.65 ABS# (0-10)
== END 2022-05-22 21:46 | disposition home or self-care (01) ==
PROVIDERS: Emergency Provider Emergency Medicine
DX: H53.2 Diplopia (principal); R51.9 Headache, unspecified; R42 Dizziness and giddiness; Z79.84 Long term (current) use of oral hypoglycemic drugs; E11.9 Type 2 diabetes mellitus without complications; I10 Essential (primary) hypertension
CPT/HCPCS: 36416; 70450; 80053; 82962; 84443; 84484; 85025; 93005; 96361; 96374; 96375; 99285; J1200; J1885; J2765; J7030; J8597

== ENCOUNTER 2023-07-06 20:00 | Outpatient (CLI) | payer MEDICAID, SELFPAY | END 2023-07-06 20:01 | disposition home or self-care (01) | LOC: SLEEP 07-07 05:37 | PROVIDERS: Visit Provider Family Medicine | DX: G47.33 Obstructive sleep apnea (adult) (pediatric) (principal) | CPT/HCPCS: 95810 ==

== ENCOUNTER 2023-09-05 15:17 | Emergency (ER) | payer MEDICAID, SELFPAY ==
[2023-09-05 15:19] VITALS: BP 141/99; PULSE 102; RESP 15; TEMP 36.8; O2SAT 98
--- NOTE | 2023-09-05 15:20 | XRR_ITS ---
PROCEDURE INFORMATION: Exam: XR Left Shoulder Exam date and time: 09/05/2023 3:34 PM Age: 38 years old Clinical indication: Injury or trauma; Fall; Blunt trauma (contusions or hematomas); Shoulder; Left; Prior surgery; Surgery date: 6+ months; Surgery type: Pacer; Additional info: Pain TECHNIQUE: Imaging protocol: Radiologic exam of the left shoulder. Views: 2 or more views. COMPARISON: CR XR chest 1V portable [id number] 12/29/2021 7:18 PM FINDINGS: Bones/joints: The glenohumeral articulation is grossly intact. The acromioclavicular articulation is grossly intact. Soft tissues: No gross soft tissue abnormality. A device projects over the left upper chest. XR/XR shoulder LT min 2V* [id number] IMPRESSION: 1. No evidence of fracture or subluxation. If there is ongoing clinical concern, consider correlation with CT.
--- NOTE | 2023-09-05 15:44 | ED_ITS ---
HPI - Extremity Problem General: Chief complaint: Extremity Injury, Upper Stated complaint: L shoulder pain Time Seen by Provider: 09/05/23 15:20 Source: patient Mode of arrival: EMS History of Present Illness: 38-year-old male presents emergency room after a fall and is bathroom he grasped a support bar twisted his arm. No other injuries he is complaining of discomfort in the left shoulder. MD Complaint: joint pain Onset (ago): hour(s) Pain Consistency: constant Location: left and upper extremity (Shoulder) Relieving factors: rest Exacerbating factors: range of motion Associated symptoms: Deny chest pain, fever(s) or rash Review of Systems Const: Denies: fever(s) or chills Card: Denies: chest pain Resp: Denies: dyspnea GI: Denies: abdominal pain : Denies: dysuria, urinary frequency or urinary urgency Musc: Denies: neck pain or back pain Skin/Breast: Denies: rash PFSH ED PFSH: Medical History Fibromyalgia Peptic ulcer disease Gastroenteritis Hypertension Diabetes mellitus Social History Smoking and tobacco/nicotine status: never used tobacco/nicotine Alcohol intake: never Substance/Drug Use: never Physical Exam Const: COMMON NORMALS: no acute distress GENERAL APPEARANCE: cooperative and comfortable ORIENTATION/CONSCIOUSNESS: Yes awake, Yes oriented to person, Yes oriented to place and Yes oriented to time HENMT: COMMON NORMALS: normocephalic, atraumatic and hearing grossly normal bilaterally HEAD & SCALP: normocephalic and atraumatic Resp: COMMON NORMALS: normal respiratory effort, No retractions, No use of accessory muscles and clear to auscultation bilaterally AUSCULTATION: clear to auscultation bilaterally Cardio: COMMON NORMALS: regular rate, regular rhythm and No murmurs present (Cardio) RATE: regular rate RHYTHM: regular rhythm Extremity: COMMON NORMALS: normal to inspection, capillary refill normal, no clubbing, cyanosis or edema, no calf tenderness and no pedal edema Neuro: SENSORIUM/ORIENTATION: Yes oriented to person, Yes oriented to place and Yes oriented to time Skin: COMMON NORMALS: no rashes or lesions noted GENERAL SKIN EXAM: no rashes or lesions noted Course Vital Signs: Vital signs: Vital Signs Temperature 98.3 F 09/05/23 15:19 Pulse Rate 102 H 09/05/23 15:19 Respiratory Rate 15 09/05/23 15:19 Blood Pressure 141/99 09/05/23 15:19 Pulse Oximetry 98 09/05/23 15:19 Oxygen Delivery Me thod Room Air 09/05/23 15:19 MDM - Extremity (Nontraumatic) Medical Decision Making Shoulder x-ray is unremarkable. No acute fractures. Will place patient in sling and discharge patient home follow-up with primary care doctor if not improving for further imaging or evaluation if felt appropriate Medical Records I reviewed the patient's medical records. Lab Data I reviewed the patient's lab results. Radiology Impressions Shoulder X-Ray 09/05/23 15:20 IMPRESSION: 1. No evidence of fracture or subluxation. If there is ongoing clinical concern, consider correlation with CT. All radiology interpretation(s) finalized by discharge Discharge Plan Discharge Patient Disposition: Home Clinical Impression: Sprain of left shoulder Condition: Stable Prescriptions: New diclofenac sodium 75 mg tablet,delayed release (DR/EC) 75 mg PO Q12H PRN (Reason: pain) Qty: 20 0RF Discontinued ibuprofen 200 mg Tablet 200 mg PO Q6H PRN (Reason: Pain) No Action metformin 1,000 mg tablet 1,000 mg PO BID gabapentin 800 mg tablet 800 mg PO TID atorvastatin 20 mg tablet 20 mg PO DAILY nortriptyline 25 mg capsule 50 mg PO BEDTIME sumatriptan succinate 25 mg tablet 25 mg PO PRN PRN (Reason: Headache) Discharge Orders: Discharge ED (Routine); Ordered 09/05/23 Ordered By: Heladio Caruso Referrals: Nico Otero MD [Primary Care Provider] - Discharge Diet: Usual diet Discharge Activity: Resume usual activity Patient Instructions: Opioid Safety, Pain Management Activity Restrictions/Additional Instructions: Thank you for choosing [facility] for your healthcare needs today. Please realize this is an emergency room and that we are providing you with a medical screening exam and this may not be complete and all inclusive of all the testing and or work up that you may need to determine your ailment or severity of your illness. It is very important that you follow up as instructed or that you return to the Emergency Department should you have concerns or if your condition changes or worsens in any way. You were seen today for left shoulder pain. Your x-ray did not show any acute fracture given the amount of pain you have recommended. Use anti-inflammatories and the sling. If the shoulder is not improving follow-up with your primary care doctor they can refer you to orthopedics or do advanced imaging if felt appropriate Coding Level of Care Code ED Manager Property for Mendez Hargrove
== END 2023-09-05 16:39 | disposition home or self-care (01) ==
PROVIDERS: Emergency Provider Family Medicine; PCP Family Medicine
DX: S43.402A Unspecified sprain of left shoulder joint, initial encounter (principal); Z79.84 Long term (current) use of oral hypoglycemic drugs; I10 Essential (primary) hypertension; E11.9 Type 2 diabetes mellitus without complications; W19.XXXA Unspecified fall, initial encounter
CPT/HCPCS: 73030; 99283

== ENCOUNTER 2023-09-17 20:00 | Outpatient (CLI) | payer MEDICAID, SELFPAY | END 2023-09-17 20:01 | disposition home or self-care (01) | LOC: SLEEP 09-18 04:15 | PROVIDERS: Visit Provider Family Medicine | DX: G47.33 Obstructive sleep apnea (adult) (pediatric) (principal) | CPT/HCPCS: 95811 ==

== ENCOUNTER 2023-09-24 14:49 | Outpatient (CLI) | payer MEDICAID, SELFPAY ==
[2023-09-24] MEDS: iohexol 350 mg/mL 500 mL Btl (per mL) IV (15:29)
--- NOTE | 2023-09-24 16:30 | CT_ITS ---
WS: [id number] CT HEAD TECHNIQUE: Noncontrast and contrast-enhanced CT of the head. CLINICAL INFORMATION: G43.711 - Chronic migraine without aura, intractable, wit... COMPARISON: 05/22/2022 DLP: 2333.[address] scans at [facility] use at least one of these dose optimization techniques: automated e xposure control; mA and/or kV adjustment per patient size (includes targeted exams where dose is matc hed to clinical indication); or iterative reconstruction. FINDINGS: No evidence intracranial hemorrhage or mass effect. Ventricular system and basal cisterns are patent. Normal jara-white differentiation. No extra-axial fluid collections. No evidence of mass or mass eff ect. No abnormal intracranial enhancement. Paranasal sinuses and mastoid air cells are well aerated. No ot her suspicious findings. No significant changes compared to previous. IMPRESSION: 1. No evidence intracranial hemorrhage or mass effect. 2. Normal jara-white differentiation. 3. No abnormal intracranial enhancement. 4. No other suspicious findings.
== END 2023-09-24 14:50 | disposition home or self-care (01) ==
LOC: RAD 14:49
PROVIDERS: PCP Family Medicine; Visit Provider Specialist
DX: G43.711 Chronic migraine without aura, intractable, with status migrainosus (principal)
CPT/HCPCS: 70470; Q9967

== ENCOUNTER 2023-10-12 09:08 | Outpatient (CLI) | payer OTHER, SELFPAY ==
--- NOTE | 2023-10-12 09:16 | XR_ITS ---
WS: [id number] LUMBAR SPINE TECHNIQUE: 3 views of the lumbar spine CLINICAL INFORMATION: BACK PAIN COMPARISON: 2019 FINDINGS: Five [id number] lumbar vertebral bodies. Minimal lumbar curve. L5 spondylolysis unchanged. No si gnificant anterolisthesis. Mild disc space narrowing L4-L5 and L5-S1. Mild facet arthropathy in the l ower lumbar spine. No other acute findings. IMPRESSION: 1. Minimal lumbar curve. 2. . L5 spondylolysis unchanged. No significant anterolisthesis. 3. Mild disc space narrowing L4-L5 and L5-S1
== END 2023-10-12 09:09 | disposition home or self-care (01) ==
LOC: RAD 09:09
PROVIDERS: PCP Family Medicine; Visit Provider Dermatology
DX: M54.50 Low back pain, unspecified (principal); M47.896 Other spondylosis, lumbar region
CPT/HCPCS: 72100

== ENCOUNTER 2024-03-05 15:34 | Emergency (ER) | payer MEDICAID, SELFPAY ==
[2024-03-05 15:37] VITALS: BP 133/97; PULSE 97; RESP 12; TEMP 36.8; O2SAT 98; BMI 48.2
--- NOTE | 2024-03-05 15:47 | XRR_ITS ---
PROCEDURE INFORMATION: Exam: XR Thoracic Spine Exam date and time: 03/05/2024 4:06 PM Age: 39 years old Clinical indication: Pain in thoracic spine; Patient HX: SOB; Mid/low back pain post fall TECHNIQUE: Imaging protocol: Radiologic exam of the thoracic spine. Views: 3 views. COMPARISON: CR (PELVIS, ) 03/05/2024 4:06 PM FINDINGS: Bones/joints: Multilevel moderate to severe disc space narrowing and productive endplate changes throughout the spine. Lumbar spine levocurvature. Soft tissues: Unremarkable. XR/XR thoracic spine 3V* [id number] IMPRESSION: 1. Multilevel moderate to severe disc space narrowing and productive endplate changes throughout the spine. 2. Lumbar spine levocurvature.
--- NOTE | 2024-03-05 15:47 | XRR_ITS ---
PROCEDURE INFORMATION: Exam: XR Lumbosacral Spine Exam date and time: 03/05/2024 4:06 PM Age: 39 years old Clinical indication: Lumbago; Patient HX: SOB; Mid/low back pain post fall TECHNIQUE: Imaging protocol: Radiologic exam of the lumbosacral spine. Views: 2 or 3 views. COMPARISON: CR XR lumbar spine 2-3V* [id number] 10/12/2023 9:28 AM FINDINGS: Bones/joints: Multilevel mild productive degenerative endplate changes throughout the spine. Soft tissues: Unremarkable. XR/XR lumbar spine 2-3V* [id number] IMPRESSION: 1. Negative for fracture or dislocation. 2. Multilevel mild productive degenerative endplate changes throughout the spine.
--- NOTE | 2024-03-05 15:47 | ECG_ITS ---
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
[2024-03-05 15:48] VITALS: BP 133/97; PULSE 95; RESP 17; O2SAT 97
--- NOTE | 2024-03-05 15:48 | XRR_ITS ---
PROCEDURE INFORMATION: Exam: XR Chest Exam date and time: 03/05/2024 4:06 PM Age: 39 years old Clinical indication: Shortness of breath; Prior surgery; Surgery date: 6+ months; Surgery type: Pacemaker; Patient HX: SOB; Mid/low back pain post fall TECHNIQUE: Imaging protocol: Radiologic exam of the chest. Views: 1 view. COMPARISON: CR XR chest 1V portable [id number] 12/29/2021 7:18 PM FINDINGS: Tubes, catheters and devices: Left-sided pacemaker. Lungs: Minimal pulmonary vascular congestion. Pleural spaces: Unremarkable. No pleural effusion. No pneumothorax. Heart/Mediastinum: Cardiomegaly. Bones/joints: Unremarkable. XR/XR chest 1V portable [id number] IMPRESSION: 1. Cardiomegaly. 2. Minimal pulmonary vascular congestion. 3. Left-sided pacemaker.
--- NOTE | 2024-03-05 15:59 | ED_ITS ---
HPI - Back Pain/Injury 2 General: Chief Complaint: Back Pain/Injury Stated Complaint: FALL Time Seen by Provider: 03/05/24 15:38 Source: patient Mode of arrival: EMS Limitations: no limitations History of Present Illness: Patient is a 39-year-old male who presents to the emergency department by ambulance for a fall prior to arrival. Patient states he was in the bathroom, was drying his hands when he went to turn and felt suddenly lightheaded and fell into the door, injuring his back. He does have a pacemaker and reports history of stroke in the past. Currently at this time he is stating that he has middle back pain, 810. He did require family member to help him get up and load onto the ambulance. He denies hitting his head or losing consciousness, and further denies any prolonged downtime. He has no neurological symptoms to report at this time. Nothing was given by ambulance. No symptoms or other concerning historical factors reported at this time. His vitals are stable on arrival. MD elicited complaint: back pain and fall Onset (ago): minute(s) Timing: constant Severity: severe Pain scale (0-10): 8 Similar Symptoms Previously: No Location: thoracic spine Radiation: none Context: fall Associated symptoms: Deny abdominal pain, chills, dysuria, fatigue, fever(s), nausea or vomiting Related Data Home Medications Medication Instructions Recorded Confirmed atorvastatin 20 mg tablet 20 mg PO DAILY 08/11/23 02/01/24 gabapentin 800 mg tablet 800 mg PO TID 08/11/23 02/01/24 metformin 1,000 mg tablet 1,000 mg PO BID 08/11/23 02/01/24 nortriptyline 25 mg capsule 50 mg PO BEDTIME 08/11/23 02/01/24 rimegepant 75 mg disintegrating mg PO 12/17/23 02/01/24 tablet (Nurtec ODT) Previous Rx's Medication Instructions Recorded diclofenac sodium 75 mg 75 mg PO Q12H PRN pain #20 tabs 09/05/23 tablet,delayed release propranolol 20 mg tablet 20 mg PO BID #60 tabs 12/08/23 mupirocin 2 % topical ointment 1 applic topical TID #15 grams 12/17/23 Allergies Allergy/AdvReac Type Severity Reaction Status Date / Time bee venom protein (honey bee) Allergy Unknown Unknown Verified 03/05/24 15:47 cat dander Allergy Unknown Unknown Verified 03/05/24 15:47 honey Allergy Unknown Unknown Verified 03/05/24 15:47 Review of Systems 2 General: Reports: 10 or more systems reviewed and unremarkable except in HPI and below Const: Reports: other (fall); Denies: fever(s), chills or fatigue Eyes: Denies: change in vision ENMT: Denies: throat pain, ear or mastoid pain or nasal discharge Card: Reports: lightheadedness; Denies: chest pain, palpitations or swelling of feet/ankles Resp: Denies: dyspnea, productive cough or wheezing GI: Denies: abdominal pain, nausea, vomiting, diarrhea or constipation : Denies: flank pain, difficulty urinating, dysuria or urinary frequency Musc: Reports: back pain; Denies: neck pain or joint pain Skin/Breast: Denies: rash Neuro: Denies: headache(s), numbness in extremities or weakness in extremities PFSH ED 2 PFSH: Medical History (Updated 03/05/24 @ 17:55 by JOSE Johnson) Fibromyalgia Peptic ulcer disease Gastroenteritis Hypertension Diabetes mellitus Social History Smoking and tobacco/nicotine status: former use of tobacco/nicotine Alcohol intake: never Substance/Drug Use: never Physical Exam 2 Const: COMMON NORMALS: no acute distress, patient oriented x3 and no limitations GENERAL APPEARANCE: cooperative and well developed NUTRITIONAL APPEARANCE: obese morbidly obese ORIENTATION/CONSCIOUSNESS: Yes awake, Yes oriented to person, Yes oriented to place and Yes oriented to time HENMT: COMMON NORMALS: normocephalic, atraumatic and hearing grossly normal bilaterally HEAD & SCALP: normocephalic and atraumatic; no Bowie's sign, no laceration and no raccoon eyes Eye: COMMON NORMALS: Equal, round and reactive pupils present, EOMs intact bilaterally and conjunctivae normal CONJUNCTIVA: Yes conjunctivae normal P UPIL: Yes Equal, round and reactive pupils present Neck/C-Spine: COMMON NORMALS: full ROM, supple and no JVD Resp: COMMON NORMALS: normal respiratory effort, No retractions, No use of accessory muscles and clear to auscultation bilaterally AUSCULTATION: clear to auscultation bilaterally OTHER: Auscultation somewhat difficult due to body habitus Cardio: COMMON NORMALS: no JVD, regular rate, regular rhythm, No clicks present (Cardio), No murmurs present (Cardio) and No rub (Cardio) RATE: r egular rate RHYTHM: regular rhythm GI: COMMON NORMALS: Normal to inspection, nondistended, normoactive bowel sounds present, Soft to palpation and non-tender AUSCULTATION: Yes normoactive bowel sounds PALPATION: Yes Soft to palpation RECTAL EXAM: Yes deferred Back/Pelvis: OTHER: Unable to assess patient's back due to body habitus and limitation from pain Extremity: COMMON NORMALS: normal to inspection, full ROM and capillary refill normal Neuro: COMMON NORMALS: patient oriented x3, CN's II-XII intact bilaterally, moves all extremities, no focal motor deficits and no sensory deficits noted SENSORIUM/ORIENTATION: Yes oriented to person, Yes oriented to place and Yes oriented to time Psych: COMMON NORMALS: mental status grossly normal and Normal thought process present THOUGHT PROCESS: Normal thought process present Skin: COMMON NORMALS: no rashes or lesions noted GENERAL SKIN EXAM: no rashes or lesions noted Course 2 Vital Signs: Vital signs: Vital Signs Temperature 98.3 F 03/05/24 15:37 Pulse Rate 100 03/05/24 17:21 Respiratory Rate 17 03/05/24 15:48 Blood Pressure 124/88 03/05/24 17:21 Pulse Oximetry 97 03/05/24 17:21 Oxygen Delivery Me thod Room Air 03/05/24 17:21 MDM - Back Pain/Injury Medical Decision Making Patient brought in by ambulance for a fall and subsequent mid back pain. History of pacemaker. Vital stable on arrival. Physical examination overall was unremarkable, no signs of head trauma as he did not hit his head or have loss of consciousness. Examination of his back was unobtainable/limited due to his body habitus and resistance to rollover. However x-ray of the thoracic and lumbar spine was negative for any acute findings, and he is informed to follow- up with primary care for further evaluation. All of his lab work was normal, and due to his history of pacemaker and proceeding lightheadedness, troponins were ordered and negative. In addition his EKG demonstrated ventricular paced rhythm, however no acute STEMI. This was reviewed with Dr. Krishnamurthy. Patient discharged home with strict return precautions. Labs 03/05/24 16:00 03/05/24 16:00 Radiology Impressions Lumbar Spine X-Ray 03/05/24 15:47 IMPRESSION: 1. Negative for fracture or dislocation. 2. Multilevel mild productive degenerative endplate changes throughout the spine. Thoracic Spine X-Ray 03/05/24 15:47 IMPRESSION: 1. Multilevel moderate to severe disc space narrowing and productive endplate changes throughout the spine. 2. Lumbar spine levocurvature. Chest X-Ray 03/05/24 15:48 IMPRESSION: 1. Cardiomegaly. 2. Minimal pulmonary vascular congestion. 3. Left-sided pacemaker. Laboratory Results WBC 5.18 10^3/uL (3.29-11.43) 03/05/24 16:00 RBC 4.61 10^6/uL (3.85-5.65) 03/05/24 16:00 Hgb 13.30 g/dL (11.27-16.99) 03/05/24 16:00 Hct 41.1 % (37-53) 03/05/24 16:00 MCV 89.2 fl (82-101) 03/05/24 16:00 MCH 28.9 pg (27-33) 03/05/24 16:00 MCHC 32.4 g/dL (30-55) 03/05/24 16:00 RDW 13.9 % (12.1-15.1) 03/05/24 16:00 Plt Count 223 10^3/cmm (157-399) 03/05/24 16:00 MPV 9.7 fL (7.4-10.4) 03/05/24 16:00 Neut % (Auto) 66.3 % 03/05/24 16:00 Lymph % (Auto) 22.6 % 03/05/24 16:00 [place] % (Auto) 8.7 % 03/05/24 16:00 Eos % (Auto) 1.4 % 03/05/24 16:00 Baso % (Auto) 0.8 % 03/05/24 16:00 Neut # (Auto) 3.44 10^3/uL (1.8-7.7) 03/05/24 16:00 Lymph # (Auto) 1.2 10^3/uL (0.8-4.8) 03/05/24 16:00 [place] # (Auto) 0.5 10^3/uL (0.2-0.9) 03/05/24 16:00 Eos # (Auto) 0.1 10^3/uL (0.0-0.8) 03/05/24 16:00 Baso # (Auto) 0.0 10^3/uL (0.0-0.1) 03/05/24 16:00 Nucleated RBC % (auto) 0 % 03/05/24 16:00 Nucleated RBCs # 0.0 /100WBC 03/05/24 16:00 Sodium 138 mmol/L (136-145) 03/05/24 16:00 Potassium 4.5 mmol/L (3.5-5.1) 03/05/24 16:00 Chloride 100 mmol/L (98-107) 03/05/24 16:00 Carbon Dioxide 24 mmol/L (22-29) 03/05/24 16:00 Anion Gap 18.5 (5-19) 03/05/24 16:00 BUN 6 mg/dL (6-20) 03/05/24 16:00 Creatinine 0.6 mg/dL (0.7-1.2) L 03/05/24 16:00 GFR Calculation 150.8 mL/min (90-130) H 03/05/24 16:00 Glucose 163 mg/dL (65-115) H 03/05/24 16:00 Calculated Osmolality 287 mOsm/kg (285-295) 03/05/24 16:00 Calcium 9.0 mg/dL (8.5-10.5) 03/05/24 16:00 Total Bilirubin 0.4 mg/dL (0.15-1.2) 03/05/24 16:00 AST 24 U/L (0-40) 03/05/24 16:00 ALT 38 U/L (0-41) 03/05/24 16:00 Alkaline Phosphatase 41 U/L (40-130) 03/05/24 16:00 Troponin T Baseline 9 ng/L (0-15) 03/05/24 16:00 Total Protein 6.8 g/dL (6.6-8.7) 03/05/24 16:00 Albumin 4.1 g/dL (3.5-5.2) 03/05/24 16:00 Globulin 2.7 g/dL (1.3-4.6) 03/05/24 16:00 Urine Color Yellow (Yellow) 03/05/24 17:03 Urine Appearance Clear (CLEAR) 03/05/24 17:03 Urine pH 7.5 (5-7) 03/05/24 17:03 Ur Specific [place] 1.011 (1.005-1.030) 03/05/24 17:03 Urine Protein Negative (Negative) 03/05/24 17:03 Urine Glucose (UA) Negative (Normal) 03/05/24 17:03 Urine Ketones Negative (Negative) 03/05/24 17:03 Urine Blood Negative (Negative) 03/05/24 17:03 Urine Nitrate Negative (Negative) 03/05/24 17:03 Urine Bilirubin Negative (Negative) 03/05/24 17:03 Urine Urobilinogen 1.0 mg/dL (Negative) 03/05/24 17:03 Ur Leukocyte Esterase Negative (Negative) 03/05/24 17:03 Urine RBC 0-2 /hpf (0-2) 03/05/24 17:03 Urine WBC 0-5 /hpf (0-5) 03/05/24 17:03 Ur Squamous Epith Cells 0-5 /hpf (0-5) 03/05/24 17:03 Amorphous Sediment Not Reportable 03/05/24 17:03 Urine Bacteria None seen /hpf (NONE) 03/05/24 17:03 Hyaline Casts 0-4 /lpf H 03/05/24 17:03 All radiology interpretation(s) finalized by discharge Discharge Plan Discharge Patient Disposition: Home Clinical Impression: Fall Qualifiers: Encounter type: initial encounter Qualified Code(s): W19.XXXA - Unspecified fall, initial encounter Contusion of mid back Qualifiers: Encounter type: initial encounter Laterality: unspecified laterality Qualified Code(s): S20.229A - Contusion of unspecified back wall of thorax, initial encounter Condition: Stable Prescriptions: No Action metformin 1,000 mg tablet 1,000 mg PO BID gabapentin 800 mg tablet 800 mg PO TID atorvastatin 20 mg tablet 20 mg PO DAILY nortriptyline 25 mg capsule 50 mg PO BEDTIME propranolol 20 mg tablet 20 mg PO BID Qty: 60 5RF Nurtec ODT 75 mg tablet,disintegrating PO mupirocin 2 % ointment 1 applic topical TID Qty: 15 0RF Rx Instructions: apply to wound TID and as needed with dressing changes, cover with band-aid diclofenac sodium 75 mg tablet,delayed release (DR/EC) 75 mg PO Q12H PRN (Reason: pain) Qty: 20 0RF Discharge Orders: Discharge ED (Routine); Ordered 03/05/24 Ordered By: Diomedes Zavala Referrals: Nico Otero MD [Primary Care Provider] - Discharge Diet: Usual diet Discharge Activity: Increase activity as tolerated Patient Instructions: Contusion in Adults (ED) Activity Restrictions/Additional Instructions: Alternate Tylenol and ibuprofen as needed. Ice/heat. Gentle range of motion exercises as tolerated. Please follow-up with primary care on Thursday as already planned. Return with any new or concerning symptoms. Coding Level of Care Code ED Chopping Machine Operator for Mendez Hargrove
[2024-03-05 16:09] LABS: Basophils % 0.8 %; Eosinophils # 0.1 10^3/uL (0.0-0.8); Eosinophils % 1.4 %; Hematocrit 41.1 % (37-53); Lymphocytes # 1.2 10^3/uL (0.8-4.8); Lymphocytes % 22.6 %; Mean Corpuscular HGB Conc 32.4 g/dL (30-55); Mean Corpuscular Hemoglobin 28.9 pg (27-33); Mean Corpuscular Volume 89.2 fl (82-101); Mean Platelet Volume 9.7 fL (7.4-10.4); Monocytes # 0.5 10^3/uL (0.2-0.9); Monocytes % 8.7 %; Neutrophils # 3.44 10^3/uL (1.8-7.7); Neutrophils % 66.3 %; Nucleated Red Blood Cells % 0 %; Platelet Count 223 10^3/cmm (157-399); Red Blood Count 4.61 10^6/uL (3.85-5.65); Red Cell Distribution Width 13.9 % (12.1-15.1); White Blood Count 5.18 10^3/uL (3.29-11.43)
[2024-03-05 16:31] LABS: Alanine Aminotransferase 38 U/L (0-41); Albumin Level 4.1 g/dL (3.5-5.2); Alkaline Phosphatase 41 U/L (40-130); Anion Gap 18.5 (5-19); Aspartate Amino Transferase 24 U/L (0-40); Blood Urea Nitrogen 6 mg/dL (6-20); Carbon Dioxide 24 mmol/L (22-29); Chloride 100 mmol/L (98-107); Globulin 2.7 g/dL (1.3-4.6); Glomerular Filtration Rate 150.8 mL/min (90-130); Glucose 163 mg/dL (65-115); Osmolality Calculated 287 mOsm/kg (285-295); Potassium 4.5 mmol/L (3.5-5.1); Sodium 138 mmol/L (136-145); Total Bilirubin 0.4 mg/dL (0.15-1.2); Total Protein 6.8 g/dL (6.6-8.7)
[2024-03-05 16:34] LABS: Creatinine Clr Calc Pharmacy 262.4413
[2024-03-05 16:35] LABS: Troponin(5th) Baseline 9 ng/L (0-15)
[2024-03-05 17:15] LABS: Charge for UA Resulting for Rev
[2024-03-05] MEDS: HYDROcodone-acetaminophen 7.5-325 mg Tablet 1 TAB PO (17:18)
[2024-03-05 17:19] LABS: Bilirubin Urine Negative (Negative); Blood Urine Negative (Negative); Glucose Urine UA Negative (Normal); Ketones Urine Negative (Negative); Leukocyte Esterase Urine Negative (Negative); Nitrate Urine Negative (Negative); Protein Urine Negative (Negative); Specific Gravity, Urine 1.011 (1.005-1.030); Urine Appearance Clear (CLEAR); Urine Color Yellow (Yellow); pH Urine 7.5 (5-7)
[2024-03-05 17:21] VITALS: BP 124/88; PULSE 100; O2SAT 97
[2024-03-05 17:24] LABS: Bacteria Urine None Seen /hpf; Hyaline Casts Urine 0-4 /lpf; RBC Urine 0-2 /hpf (0-2); Squamous Epithelial Cell Urine 0-5 /hpf (0-5); WBC Urine 0-5 /hpf (0-5)
--- NOTE | 2024-03-05 17:34 | ECG_ITS ---
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
[2024-03-05 18:33] VITALS: BP 161/101; PULSE 96; O2SAT 97
== END 2024-03-05 18:34 | disposition home or self-care (01) ==
PROVIDERS: Emergency Provider Physician Assistant; PCP Family Medicine
DX: S20.229A Contusion of unspecified back wall of thorax, initial encounter (principal); Z79.84 Long term (current) use of oral hypoglycemic drugs; I10 Essential (primary) hypertension; E11.9 Type 2 diabetes mellitus without complications; Z87.891 Personal history of nicotine dependence; W18.39XA Other fall on same level, initial encounter
CPT/HCPCS: 36415; 71045; 72072; 72100; 80053; 81003; 81015; 84484; 85025; 93005; 99285

== ENCOUNTER 2024-07-28 08:23 | Outpatient (CLI) | payer MEDICAID, SELFPAY ==
[2024-07-28 09:44] LABS: Vitamin B12 200 pg/mL (232-1245)
[2024-07-28 09:54] LABS: Estmated Average Glucose 163; Hemoglobin A1C 7.3 % (4.0-6.0)
[2024-07-29 13:45] LABS: COMPLEMENT COMPONENT C3C 219 mg/dL (82-185); COMPLEMENT COMPONENT C4C 41 mg/dL (15-53)
[2024-07-29 15:38] LABS: COMPLEMENT, TOTAL (CH50) 53 U/mL (31-60)
[2024-07-29 17:24] LABS: CENTROMERE B ANTIBODY <1.0 NEG AI (<1.0 NEG); JO-1 ANTIBODY <1.0 NEG AI (<1.0 NEG); RNP ANTIBODY <1.0 NEG AI (<1.0 NEG); SCL-70 ANTIBODY <1.0 NEG AI (<1.0 NEG); SJOGREN'S ANTIBODY (SS-A) <1.0 NEG AI (<1.0 NEG); SM ANTIBODY <1.0 NEG AI (<1.0 NEG); SS-B <1.0 NEG AI (<1.0 NEG)
== END 2024-07-28 08:24 | disposition home or self-care (01) ==
PROVIDERS: Specialist; PCP Family Medicine; Visit Provider Family Medicine
DX: G62.89 Other specified polyneuropathies (principal)
CPT/HCPCS: 36415; 82607; 83036; 83520; 86160; 86162; 86235; 86255; 86376

== ENCOUNTER 2024-08-11 00:22 | Emergency (ER) | payer MEDICAID, SELFPAY ==
[2024-08-11] VITALS (8 sets, daily range): BP systolic 102–127; BP diastolic 65–84; PULSE 73–84; RESP 14–18; TEMP 36.5; O2SAT 95–98; BMI 47.9
--- NOTE | 2024-08-11 00:31 | XRR_ITS ---
PROCEDURE INFORMATION: Exam: XR Chest Exam date and time: 08/11/2024 12:33 AM Age: 39 years old Clinical indication: Pain; Chest pressure; Prior surgery; Surgery date: 6+ months; Surgery type: Pacemaker 2022; Additional info: Chest pain TECHNIQUE: Imaging protocol: Radiologic exam of the chest. Views: 1 view. COMPARISON: CR XR chest 1V portable [id number] 03/05/2024 4:06 PM FINDINGS: Lungs: Unremarkable. No consolidation. Pleural spaces: Unremarkable. No pleural effusion. No pneumothorax. Heart/Mediastinum: Unremarkable. No cardiomegaly. Diaphragm: Within normal limits. Bones/joints: Unremarkable. Left subclavian dual lead pacemaker. XR/XR chest 1V portable [id number] IMPRESSION: No acute pathology.
--- NOTE | 2024-08-11 00:33 | W.ED.CHESTPA ---
HPI - Chest Pain General: Chief Complaint: Chest Pain Stated Complaint: cp Time Seen by Provider: 08/11/24 00:24 History of Present Illness: 39-year-old man with history of morbid obesity, diabetes, diabetic neuropathy, history of bradycardia with pacemaker placement who lives in assisted living secondary to neuropathy and frequent falls and presents to the emergency room by ambulance with chest pains. He had sharp left-sided chest pains earlier. Currently minimal. No cough. No fevers. No altered mental status. No nausea or vomiting Related Data Home Medications Medication Instructions Recorded Confirmed atorvastatin 20 mg tablet 20 mg PO DAILY 08/11/23 07/27/24 metformin 1,000 mg tablet 1,000 mg PO BID 08/11/23 07/27/24 nortriptyline 25 mg capsule 50 mg PO BEDTIME 08/11/23 07/27/24 rimegepant 75 mg disintegrating mg PO 12/17/23 07/27/24 tablet (Nurtec ODT) dapagliflozin propanediol 10 mg 10 mg PO DAILY 03/09/24 07/27/24 tablet (Farxiga) pregabalin 150 mg capsule mg PO 03/09/24 07/27/24 Previous Rx's Medication Instructions Recorded propranolol 20 mg tablet See Rx Instructions .Route 05/30/24 .COMPLEX #60 tabs topiramate 100 mg tablet (Topamax) 100 mg PO DAILY #30 tabs 07/27/24 cyanocobalamin (vitamin B-12) 1,000 mcg IM DAILY #7 ea 07/29/24 1,000 mcg/mL injection kit Allergies Allergy/AdvReac Type Severity Reaction Status Date / Time bee venom protein (honey bee) Allergy Unknown Unknown Verified 08/11/24 00:32 cat dander Allergy Unknown Unknown Verified 08/11/24 00:32 honey Allergy Unknown Unknown Verified 08/11/24 00:32 Review of Systems Narrative: Constitutional symptoms: Negative except as documented in HPI. Skin symptoms: Negative except as documented in HPI. Eye symptoms: Negative except as documented in HPI. ENMT symptoms: Negative except as documented in HPI. Respiratory symptoms: Negative except as documented in HPI. Cardiovascular symptoms: Negative except as documented in HPI. Gastrointestinal symptoms: Negative except as documented in HPI. Genitourinary symptoms: Negative except as documented in HPI. Musculoskeletal symptoms: Negative except as documented in HPI. Neurologic symptoms: Negative except as documented in HPI. Psychiatric symptoms: Negative except as documented in HPI. Endocrine symptoms: Negative except as documented in HPI. [facility] ED PFSH: Medical History (Updated 08/11/24 @ 02:54 by Marta Hoover MD) Psychiatric care Fibromyalgia Peptic ulcer disease Gastroenteritis Hypertension Diabetes mellitus Social History Smoking and tobacco/nicotine status: never used tobacco/nicotine Alcohol intake: never Substance/Drug Use: never Physical Exam Narrative: EXAM NARRATIVE: General: Alert, no acute distress. Skin: Warm, dry. Head: Normocephalic, atraumatic. Neck: Supple, trachea midline. Eye: Extraocular movements are intact. Ears, nose, mouth and throat: mucosa moist. Cardiovascular: Regular, Normal peripheral perfusion. Respiratory: Lungs are clear to auscultation, respirations are non-labored, breath sounds are equal, Symmetrical chest wall expansion. Gastrointestinal: Soft, Nontender, Non distended Musculoskeletal: Normal ROM, no deformity. Neurological: Alert and oriented, No focal neurological deficit observed. Psychiatric: Cooperative, appropriate mood & affect. Course Vital Signs: Vital signs: Vital Signs Temperature 97.7 F 08/11/24 00:22 Pulse Rate 73 08/11/24 02:28 Respiratory Rate 18 08/11/24 02:28 Blood Pressure 118/84 08/11/24 02:28 Pulse Oximetry 95 08/11/24 02:28 Oxygen Delivery Me thod Room Air 08/11/24 02:28 MDM - Chest Pain Medical Decision Making Differential diagnosis for patient with chest pain includes but is not limited to and based on the above HPI, review of systems and physical exam: Pneumonia. unstable angina. angina. Acute coronary syndrome / [facility]. Pulmonary embolism. Costochondritis / musculoskeletal. Pleurisy. Pericarditis. Esophageal spasm. Pancreatis. Cholecystitis. Orders placed to evaluate differential diagnosis based on the above differential, HPI and physical exam EKG: Time 12:27 AM. Rate 85. Normal sinus rhythm, No ST-T changes, no ectopy, paced rhythm, this was reviewed and interpreted by myself the emergency room physician at 12:30 AM. Chest x-ray: Pacemaker in place. No acute process. No infiltrate. No pneumothorax. This was reviewed and interpreted by myself the emergency room physician. I also reviewed the radiology report. Lab Review: Laboratory results were reviewed and interpreted by myself the emergency room physician. No leukocytosis. No anemia. No renal failure. Serial troponins are negative. HEART Pathway for Early Discharge in Acute Chest Pain from [employer] on 08/11/2024 All calculations should be rechecked by clinician prior to use RESULT SUMMARY: 1 points HEART Pathway Score Low risk 0.9-1.7% 30-day MACE Repeat troponin at 2 hours and if negative, discharge home with outpatient follow-up. INPUTS: History ?> 0 = Slightly suspicious EKG ?> 0 = Normal Age ?> 0 = <45 Risk factors ?> 1 = 1-2 risk factors Initial troponin ?> 0 = <=ormal limit I reviewed the patient's medical record. Reexamination: Patient remained stable. No increased work of breathing. No altered mental status. No focal motor deficits. Assessment and plan: Noncardiac chest pain - Discharged home - Discussed plan with patient. Answered any questions. - Evaluation and treatment of this problem were appropriate in the emergency setting. Lab Data 08/11/24 00:31 08/11/24 00:31 Radiology Impressions Chest X-Ray 08/11/24 00:31 IMPRESSION: No acute pathology. Laboratory Results WBC 8.04 10^3/uL (3.29-11.43) 08/11/24 00:31 RBC 4.85 10^6/uL (3.85-5.65) 08/11/24 00:31 Hgb 13.50 g/dL (11.27-16.99) 08/11/24 00:31 Hct 41.3 % (37-53) 08/11/24 00:31 MCV 85.2 fl (82-101) 08/11/24 00:31 MCH 27.8 pg (27-33) 08/11/24 00:31 MCHC 32.7 g/dL (30-55) 08/11/24 00:31 RDW 15.2 % (12.1-15.1) H 08/11/24 00:31 Plt Count 283 10^3/cmm (157-399) 08/11/24 00:31 MPV 9.8 fL (7.4-10.4) 08/11/24 00: Neut % (Auto) 60.5 % 08/11/24 00:31 Lymph % (Auto) 30.3 % 08/11/24 00: [place] % (Auto) 6.3 % 08/11/24 00: Eos % (Auto) 2.1 % 08/11/24 00: Baso % (Auto) 0.7 % 08/11/24 00: Neut # (Auto) 4.85 10^3/uL (1.8-7.7) 08/11/24 00: Lymph # (Auto) 2.4 10^3/uL (0.8-4.8) 08/11/24 00: [place] # (Auto) 0.5 10^3/uL (0.2-0.9) 08/11/24 00: Eos # (Auto) 0.2 10^3/uL (0.0-0.8) 08/11/24 00: Baso # (Auto) 0.1 10^3/uL (0.0-0.1) 08/11/24 00: Nucleated RBC % (auto) 0 % 08/11/24 00 Nucleated RBCs # 0.0 /100WBC 08/11/24 00: Sodium 138 mmol/L (136-145) 08/11/24 00: Potassium 3.4 mmol/L (3.5-5.1) L 08/11/24 00: Chloride 102 mmol/L (98-107) 08/11/24 00: Carbon Dioxide 21 mmol/L (22-29) L 08/11/24 00: Anion Gap 18.4 (5-19) 08/11/24 00: BUN 11 mg/dL (6-20) 08/11/24 00: Creatinine 1.1 mg/dL (0.7-1.2) 08/11/24 00: GFR Calculation 74.9 mL/min (90-130) L 08/11/24: Glucose 107 mg/dL (65-115) 08/11/24: Calculated Osmolality 286 mOsm/kg (285-295) 08/11/24 00: Calcium 9.2 mg/dL (8.5-10.5) 08/11/24 00: Total Bilirubin 0.3 mg/dL (0.15-1.2) 01/23/25 00:31 AST 22 U/L (0-40) 08/11/24 00:31 ALT 32 U/L (0-41) 08/11/24 00:31 Alkaline Phosphatase 36 U/L (40-130) L 08/11/24 00:31 Troponin T Baseline 8 ng/L (0-15) 08/11/24 00:31 Troponin T 120 Minute 7.03 ng/L (0-15) 08/11/24 02:26 Delta Troponin T -0.97 ABS# (0-10) L 08/11/24 02:26 NT-Pro-B Natriuret Pep < 36 pg/mL (0-125) 08/11/24 00:31 Total Protein 7.0 g/dL (6.6-8.7) 08/11/24 00:31 Albumin 4.1 g/dL (3.5-5.2) 08/11/24 00:31 Globulin 2.9 g/dL (1.3-4.6) 08/11/24 00:31 All radiology interpretation(s) finalized by discharge Clincial Decision Support The following clinical decision support tools were used to aid in care of the patient HEART Score -> History: Slightly Suspicous, EKG: Normal, Age: Less than 45 yrs, Risk Factors: 1 or 2 Risk Factors, Troponin: Baseline Trop <16 ng/L. Resulting HEART Score: 1. Discharge Plan Discharge Patient Disposition: Home Clinical Impression: Non-cardiac chest pain Condition: Stable Prescriptions: No Action metformin 1,000 mg tablet 1,000 mg PO BID atorvastatin 20 mg tablet 20 mg PO DAILY nortriptyline 25 mg capsule 50 mg PO BEDTIME Nurtec ODT 75 mg tablet,disintegrating PO pregabalin 150 mg capsule PO dapagliflozin propanediol [Farxiga] 10 mg tablet 10 mg PO DAILY topiramate [Topamax] 100 mg tablet 100 mg PO DAILY Qty: 30 3RF propranolol 20 mg tablet See Rx Instructions .ROUTE .COMPLEX Qty: 60 5RF Dose Instruction: TAKE 1 TABLET BY MOUTH TWICE A DAY Rx Instructions: TAKE 1 TABLET BY MOUTH TWICE A DAY cyanocobalamin (vitamin B-12) 1,000 mcg/mL kit 1,000 mcg IM DAILY Qty: 7 1RF Rx Instructions: 1000 units IM daily for 3 days then weekly for 4 weeks then monthly Discharge Orders: Discharge ED (Routine); Ordered 08/11/24 Ordered By: Marta Hoover Referrals: Nico Otero MD [Primary Care Provider] - Discharge Diet: Usual diet Discharge Activity: Increase activity as tolerated Patient Instructions: Noncardiac Chest Pain (ED), Opioid Safety, Pain Management Activity Restrictions/Additional Instructions: Thank you for choosing [facility] for your healthcare needs today. Please realize this is an emergency room and that we are providing you with a medical screening exam and this may not be complete and all inclusive of all the testing and or work up that you may need to determine your ailment or severity of your illness. You have been screened and evaluated and felt safe for discharge. Health conditions do change or evolve sometimes and as such it is important that you follow up with your Primary Doctor to be re checked, 3-5 days is a general good time frame for follow up. You are always welcome to return to the ED for re assessment if your symptoms are worsening or you have new concerns Coding Level of Care Code ED Tram Driver for Mendez Hargrove
[2024-08-11 00:38] LABS: Basophils # 0.1 10^3/uL (0.0-0.1); Basophils % 0.7 %; Eosinophils # 0.2 10^3/uL (0.0-0.8); Eosinophils % 2.1 %; Hematocrit 41.3 % (37-53); Lymphocytes # 2.4 10^3/uL (0.8-4.8); Lymphocytes % 30.3 %; Mean Corpuscular HGB Conc 32.7 g/dL (30-55); Mean Corpuscular Hemoglobin 27.8 pg (27-33); Mean Corpuscular Volume 85.2 fl (82-101); Mean Platelet Volume 9.8 fL (7.4-10.4); Monocytes # 0.5 10^3/uL (0.2-0.9); Monocytes % 6.3 %; Neutrophils # 4.85 10^3/uL (1.8-7.7); Neutrophils % 60.5 %; Nucleated Red Blood Cells % 0 %; Platelet Count 283 10^3/cmm (157-399); Red Blood Count 4.85 10^6/uL (3.85-5.65); Red Cell Distribution Width 15.2 % (12.1-15.1); White Blood Count 8.04 10^3/uL (3.29-11.43)
[2024-08-11 00:58] LABS: Troponin(5th) Baseline 8 ng/L (0-15)
[2024-08-11 01:04] LABS: Alanine Aminotransferase 32 U/L (0-41); Albumin Level 4.1 g/dL (3.5-5.2); Alkaline Phosphatase 36 U/L (40-130); Anion Gap 18.4 (5-19); Aspartate Amino Transferase 22 U/L (0-40); Blood Urea Nitrogen 11 mg/dL (6-20); Calcium 9.2 mg/dL (8.5-10.5); Carbon Dioxide 21 mmol/L (22-29); Chloride 102 mmol/L (98-107); Creatinine Clr Calc Pharmacy 142.6825; Globulin 2.9 g/dL (1.3-4.6); Glomerular Filtration Rate 74.9 mL/min (90-130); Glucose 107 mg/dL (65-115); Osmolality Calculated 286 mOsm/kg (285-295); Potassium 3.4 mmol/L (3.5-5.1); Sodium 138 mmol/L (136-145); Total Bilirubin 0.3 mg/dL (0.15-1.2)
[2024-08-11 01:07] LABS: NT Pro B Type Natriuretic Pept < 36 pg/mL (0-125)
--- NOTE | 2024-08-11 02:22 | ECG_ITS ---
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 Measurements Intervals [place] Rate: 78 P: 23 ID: [id number] QRS: -45 QRSD: 180 T: 54 QT: 457 QTc: 523 Interpretive Statements ELECTRONIC VENTRICULAR PACEMAKER Compared to ECG 03/05/2024 17:34:30 No significant changes Electronically Signed On 08-13-2024 23:31:19 DENTAL INSTRUCTOR by Markus Conteh M.D. [id number]
[2024-08-11 02:51] LABS: Troponin 5 2HR 7.03 ng/L (0-15)
[2024-08-11 02:54] LABS: Troponin 5 2HR Delta -0.97 ABS# (0-10)
== END 2024-08-11 07:54 | disposition home or self-care (01) ==
PROVIDERS: Emergency Provider Emergency Medicine; PCP Family Medicine
DX: R07.89 Other chest pain (principal); Z79.84 Long term (current) use of oral hypoglycemic drugs; I10 Essential (primary) hypertension; E11.40 Type 2 diabetes mellitus with diabetic neuropathy, unspecified
CPT/HCPCS: 71045; 80053; 83880; 84484; 85025; 93005; 99285

== ENCOUNTER 2024-08-20 09:30 | Emergency (ER) | payer MEDICAID, SELFPAY ==
[2024-08-20 09:31] VITALS: BP 127/84; PULSE 83; RESP 13; TEMP 36.6; O2SAT 99
--- NOTE | 2024-08-20 09:52 | XRR_ITS ---
PROCEDURE INFORMATION: Exam: XR Chest Exam date and time: 08/20/2024 9:57 AM Age: 39 years old Clinical indication: Other: Weakness TECHNIQUE: Imaging protocol: Radiologic exam of the chest. Views: 1 view. COMPARISON: CR (CHEST, ) 08/11/2024 12:33 AM FINDINGS: Tubes, catheters and devices: A pacemaker device is present, and its leads are in appropriate position. Lungs: Poor inspiratory effort. No gross consolidation. Pleural spaces: Unremarkable. No pleural effusion. No pneumothorax. Heart/Mediastinum: Unremarkable. No cardiomegaly. Bones/joints: Unremarkable. XR/XR chest 1V portable [id number] IMPRESSION: No gross consolidation.
--- NOTE | 2024-08-20 10:47 | W.ED.WEAKNES ---
HPI - Weakness General: Chief complaint: Weakness Stated complaint: weakness Time Seen by Provider: 08/20/24 09:49 History of Present Illness: 39-year-old man with history of morbid obesity, diabetes, diabetic neuropathy, history of bradycardia with pacemaker placement who lives in assisted living secondary to neuropathy and frequent falls and presents to the emergency room by ambulance with weakness since yesterday. He says he feels somnolent. He has some pressure in his head. He had eye surgery to his left eye to resolve diplopia about a week ago. No signs of infection there. He is had some cough. He says he has a sore throat. Sugars normal. Afebrile. No abdominal pain. No nausea or vomiting. Review of Systems Narrative: Constitutional symptoms: Negative except as documented in HPI. Skin symptoms: Negative except as documented in HPI. Eye symptoms: Negative except as documented in HPI. ENMT symptoms: Negative except as documented in HPI. Respiratory symptoms: Negative except as documented in HPI. Cardiovascular symptoms: Negative except as documented in HPI. Gastrointestinal symptoms: Negative except as documented in HPI. Genitourinary symptoms: Negative except as documented in HPI. Musculoskeletal symptoms: Negative except as documented in HPI. Neurologic symptoms: Negative except as documented in HPI. Psychiatric symptoms: Negative except as documented in HPI. Endocrine symptoms: Negative except as documented in HPI. [facility] ED PFS: Medical History (Updated 08/20/24 @ 12:58 by Marta Hoover MD) Psychiatric care Fibromyalgia Peptic ulcer disease Gastroenteritis Hypertension Diabetes mellitus Social History Smoking and tobacco/nicotine status: never used tobacco/nicotine Alcohol intake: never Substance/Drug Use: never Physical Exam Narrative: EXAM NARRATIVE: General: Alert, no acute distress. Skin: Warm, dry. Head: Normocephalic, atraumatic. Neck: Supple, trachea midline. Eye: There is some swelling and mild erythema of the periocular tissue. No obvious signs of infection. Ears, nose, mouth and throat: Tacky oral mucosa Cardiovascular: Regular, Normal peripheral perfusion. Respiratory: Lungs are clear to auscultation, respirations are non-labored, breath sounds are equal, Symmetrical chest wall expansion. Gastrointestinal: Soft, Nontender, Non distended Musculoskeletal: Normal ROM, no deformity. Neurological: Alert and oriented, No focal neurological deficit observed. Psychiatric: Cooperative, appropriate mood & affect. Course Vital Signs: Vital signs: Vital Signs Temperature 97.8 F 08/20/24 09:31 Pulse Rate 68 08/20/24 12:09 Respiratory Rate 18 08/20/24 12:09 Blood Pressure 116/75 08/20/24 12:09 Pulse Oximetry 98 08/20/24 12:09 MDM - Weakness Medical Decision Making Medical decision making: Differential diagnosis for patient presenting with generalized weakness including but not limited to and based on the above HPI, review of systems and physical exam: Sepsis. Dehydration. Renal failure. Electrolyte abnormalities. Anemia. Congestive heart failure. Hypotension. Coronary syndrome. Hepatitis. Cirrhosis. Infections such as pneumonia, urinary tract infection, [place]ne illness, Cellulitis, Viral infections including influenza and Covid-19. Workup: labwork and lab/exam driven imaging ordered to evaluate, rule in and rule out above pathologies. Chest x-ray: No acute process. No infiltrate. No pneumothorax. This was reviewed and interpreted by myself the emergency room physician. I also reviewed the radiology report. CT head: No acute intracranial process. no intracranial hemorrhage, no evidence of infarct. no evidence of acute fracture.This was reviewed and interpreted by myself the ER physician. Lab Review: Laboratory results were reviewed and interpreted by myself the emergency room physician. No leukocytosis. No anemia. No renal failure. Urinalysis is negative. I reviewed the patient's medical record. Reexamination: Patient remained stable. No increased work of breathing. No altered mental status. No focal motor deficits. He is complaining of a headache still. Giving some Toradol. Possibly developing some early cellulitis there are some mild erythema on his face. I will place him on some prophylactic antibiotics. Assessment and plan: Dehydration Headache Weakness ?Toradol, saline and Rocephin. - Discharged home - Discussed plan with patient. Answered any questions. - Evaluation and treatment of this problem were appropriate in the emergency setting. Lab Data 08/20/24 11:20 08/20/24 11:20 Radiology Impressions Chest X-Ray 08/20/24 09:52 IMPRESSION: No gross consolidation. Head CT 08/20/24 11:56 IMPRESSION: No large territorial infarct or intracranial bleed. Laboratory Results WBC 5.37 10^3/uL (3.29-11.43) 08/20/24 11:20 RBC 4.84 10^6/uL (3.85-5.65) 08/20/24 11:20 Hgb 13.50 g/dL (11.27-16.99) 08/20/24 11:20 Hct 41.8 % (37-53) 08/20/24 11:20 MCV 86.4 fl (82-101) 08/20/24 11:20 MCH 27.9 pg (27-33) 08/20/24 11:20 MCHC 32.3 g/dL (30-55) 08/20/24 11:20 RDW 15.9 % (12.1-15.1) H 08/20/24 11:20 Plt Count 264 10^3/cmm (157-399) 08/20/24 11:20 MPV 10.0 fL (7.4-10.4) 08/20/24 11:20 Neut % (Auto) 65.9 % 08/20/24 11:20 Lymph % (Auto) 25.3 % 08/20/24 11:20 Darke % (Auto) 6.0 % 08/20/24 11:20 Eos % (Auto) 1.9 % 08/20/24 11:20 Baso % (Auto) 0.7 % 08/20/24 11:20 Neut # (Auto) 3.54 10^3/uL (1.8-7.7) 08/20/24 11:20 Lymph # (Auto) 1.4 10^3/uL (0.8-4.8) 08/20/24 11:20 Darke # (Auto) 0.3 10^3/uL (0.2-0.9) 08/20/24 11:20 Eos # (Auto) 0.1 10^3/uL (0.0-0.8) 08/20/24 11:20 Baso # (Auto) 0.0 10^3/uL (0.0-0.1) 08/20/24 11:20 Nucleated RBC % (auto) 0 % 08/20/24 11:20 Nucleated RBCs # 0.0 /100WBC 08/20/24 11:20 Sodium 136 mmol/L (136-145) 08/20/24 11:20 Potassium 4.0 mmol/L (3.5-5.1) 08/20/24 11:20 Chloride 103 mmol/L (98-107) 08/20/24 11:20 Carbon Dioxide 21 mmol/L (22-29) L 08/20/24 11:20 Anion Gap 16.0 (5-19) 08/20/24 11:20 BUN 7 mg/dL (6-20) 08/20/24 11:20 Creatinine 0.7 mg/dL (0.7-1.2) 08/20/24 11:20 GFR Calculation 126.2 mL/min (90-130) 08/20/24 11:20 Glucose 115 mg/dL (65-115) 08/20/24 11:20 Calculated Osmolality 281 mOsm/kg (285-295) L 08/20/24 11:20 Lactic Acid 1.1 mmol/L (0.5-2.2) 08/20/24 11:20 Calcium 9.2 mg/dL (8.5-10.5) 08/20/24 11:20 Total Bilirubin 0.4 mg/dL (0.15-1.2) 08/20/24 11:20 AST 17 U/L (0-40) 08/20/24 11:20 ALT 26 U/L (0-41) 08/20/24 11:20 Alkaline Phosphatase 38 U/L (40-130) L 08/20/24 11:20 C-Reactive Protein 8.5 mg/L (0.0-4.9) H 08/20/24 11:20 Total Protein 6.8 g/dL (6.6-8.7) 08/20/24 11:20 Albumin 4.0 g/dL (3.5-5.2) 08/20/24 11:20 Globulin 2.8 g/dL (1.3-4.6) 08/20/24 11:20 Urine Color Yellow (Yellow) 08/20/24 10:21 Urine Appearance Clear (CLEAR) 08/20/24 10:21 Urine pH 5.5 (5-7) 08/20/24 10:21 Ur Specific [place] 1.014 (1.005-1.030) 08/20/24 10:21 Urine Protein Negative (Negative) 08/20/24 10:21 Urine Glucose (UA) 2+ (Normal) H 08/20/24 10:21 Urine Ketones Negative (Negative) 08/20/24 10:21 Urine Blood Negative (Negative) 08/20/24 10:21 Urine Nitrate Negative (Negative) 08/20/24 10:21 Urine Bilirubin Negative (Negative) 08/20/24 10:21 Urine Urobilinogen 0.2 mg/dL (Negative) 08/20/24 10:21 Ur Leukocyte Esterase Negative (Negative) 08/20/24 10:21 Urine RBC 0-2 /hpf (0-2) 08/20/24 10:21 Urine WBC 0-5 /hpf (0-5) 08/20/24 10:21 Ur Squamous Epith Cells 0-5 /hpf (0-5) 08/20/24 10:21 Amorphous Sediment Not Reportable 08/20/24 10:21 Urine Bacteria None seen /hpf (NONE) 08/20/24 10:21 Hyaline Casts 0-4 /lpf H 08/20/24 10:21 Coronavirus (PCR) Negative (Negative) 08/20/24 10:11 Influenza A (PCR) Negative (Negative) 08/20/24 10:11 Influenza Type B (PCR) Negative (Negative) 08/20/24 10:11 RSV (PCR) Negative (Negative) 08/20/24 10:11 All radiology interpretation(s) finalized by discharge Discharge Plan Discharge Patient Disposition: Home Clinical Impression: Headache, Dehydration, Weakness Condition: Stable Prescriptions: New cephalexin 500 mg tablet 500 mg PO TID 7 Days Qty: 21 0RF No Action metformin 1,000 mg tablet 1,000 mg PO BID atorvastatin 20 mg tablet 20 mg PO DAILY nortriptyline 25 mg capsule 50 mg PO BEDTIME Nurtec ODT 75 mg tablet,disintegrating 75 mg PO DAILY PRN (Reason: migranes) pregabalin 150 mg capsule 150 mg PO TID dapagliflozin propanediol [Farxiga] 10 mg tablet 10 mg PO DAILY topiramate [Topamax] 100 mg tablet 100 mg PO DAILY Qty: 30 3RF cyanocobalamin (vitamin B-12) 1,000 mcg/mL kit 1,000 mcg IM DAILY Qty: 7 1RF Rx Instructions: 1000 units IM daily for 3 days then weekly for 4 weeks then monthly meclizine 25 mg Tablet 25 mg PO DAILY PRN (Reason: Dizziness Or Vertigo) metoprolol succinate 25 mg tablet extended release 24 hr 25 mg PO DAILY propranolol 20 mg tablet 20 mg PO BID Rx Instructions: TAKE 1 TABLET BY MOUTH TWICE A DAY Discharge Orders: Discharge ED (Routine); Ordered 08/20/24 Ordered By: Marta Hoover Referrals: Nico Otero MD [Primary Care Provider] - Discharge Diet: Usual diet Discharge Activity: Increase activity as tolerated Patient Instructions: Opioid Safety, Pain Management Activity Restrictions/Additional Instructions: I am placing you on some prophylactic antibiotics in case your developing some early facial cellulitis. No obvious evidence of that at this time but prophylaxis will not hurt. I would contact the surgeon that performed the surgery and ask if they have any concerns about you having a headache after the surgery. Your head CT does not show any acute findings Thank you for choosing [facility] for your healthcare needs today. Please realize this is an emergency room and that we are providing you with a medical screening exam and this may not be complete and all inclusive of all the testing and or work up that you may need to determine your ailment or severity of your illness. You have been screened and evaluated and felt safe for discharge. Health conditions do change or evolve sometimes and as such it is important that you follow up with your Primary Doctor to be re checked, 3-5 days is a general good time frame for follow up. You are always welcome to return to the ED for re assessment if your symptoms are worsening or you have new concerns Coding Level of Care Code ED Stand Grinder for Chg Fwd Related Data Home Medications Medication Instructions Recorded Confirmed atorvastatin 20 mg tablet 20 mg PO DAILY 08/11/23 08/20/24 metformin 1,000 mg tablet 1,000 mg PO BID 08/11/23 08/20/24 nortriptyline 25 mg capsule 50 mg PO BEDTIME 08/11/23 08/20/24 rimegepant 75 mg disintegrating 75 mg PO DAILY PRN migranes 12/17/23 08/20/24 tablet (Nurtec ODT) dapagliflozin propanediol 10 mg 10 mg PO DAILY 03/09/24 08/20/24 tablet (Farxiga) pregabalin 150 mg capsule 150 mg PO TID 03/09/24 08/20/24 meclizine 25 mg tablet 25 mg PO DAILY PRN Dizziness Or 08/11/24 08/20/24 Vertigo metoprolol succinate 25 mg 25 mg PO DAILY 08/11/24 08/20/24 tablet,extended release 24 hr propranolol 20 mg tablet 20 mg PO BID 08/11/24 08/20/24 Previous Rx's Medication Instructions Recorded topiramate 100 mg tablet (Topamax) 100 mg PO DAILY #30 tabs 07/27/24 cyanocobalamin (vitamin B-12) 1,000 mcg IM DAILY #7 ea 07/29/24 1,000 mcg/mL injection kit cephalexin 500 mg tablet 500 mg PO TID 7 days #21 tabs 08/20/24 Allergies Allergy/AdvReac Type Severity Reaction Status Date / Time bee venom protein (honey bee) Allergy Unknown Unknown Verified 08/11/24 00:32 cat dander Allergy Unknown Unknown Verified 08/11/24 00:32 honey Allergy Unknown Unknown Verified 08/11/24 00:32
[2024-08-20 11:42] LABS: Bilirubin Urine Negative (Negative); Blood Urine Negative (Negative); Glucose Urine UA 2+ (Normal); Ketones Urine Negative (Negative); Leukocyte Esterase Urine Negative (Negative); Nitrate Urine Negative (Negative); Protein Urine Negative (Negative); Specific Gravity, Urine 1.014 (1.005-1.030); Urine Appearance Clear (CLEAR); Urine Color Yellow (Yellow); Urobilinogen Urine 0.2 mg/dL (Negative); pH Urine 5.5 (5-7)
[2024-08-20 11:46] LABS: Covid PCR NEGATIVE (Negative); Influenza A NEGATIVE (Negative); Influenza B NEGATIVE (Negative); Respiratory Syncytial Virus Ce NEGATIVE (Negative)
[2024-08-20 11:47] LABS: Bacteria Urine None Seen /hpf; Hyaline Casts Urine 0-4 /lpf; RBC Urine 0-2 /hpf (0-2); Squamous Epithelial Cell Urine 0-5 /hpf (0-5); WBC Urine 0-5 /hpf (0-5)
[2024-08-20 11:51] LABS: Basophils % 0.7 %; Eosinophils # 0.1 10^3/uL (0.0-0.8); Eosinophils % 1.9 %; Hematocrit 41.8 % (37-53); Lymphocytes # 1.4 10^3/uL (0.8-4.8); Lymphocytes % 25.3 %; Mean Corpuscular HGB Conc 32.3 g/dL (30-55); Mean Corpuscular Hemoglobin 27.9 pg (27-33); Mean Corpuscular Volume 86.4 fl (82-101); Monocytes # 0.3 10^3/uL (0.2-0.9); Neutrophils # 3.54 10^3/uL (1.8-7.7); Neutrophils % 65.9 %; Nucleated Red Blood Cells % 0 %; Platelet Count 264 10^3/cmm (157-399); Red Blood Count 4.84 10^6/uL (3.85-5.65); Red Cell Distribution Width 15.9 % (12.1-15.1); White Blood Count 5.37 10^3/uL (3.29-11.43)
--- NOTE | 2024-08-20 11:56 | CTR_ITS ---
PROCEDURE INFORMATION: Exam: CT Head Without Contrast Exam date and time: 08/20/2024 12:35 PM Age: 39 years old Clinical indication: Weakness, extremity TECHNIQUE: Imaging protocol: Computed tomography of the head without contrast. Radiation optimization: All CT scans at this facility use at least one of these dose optimization techniques: automated exposure control; mA and/or kV adjustment per patient size (includes targeted exams where dose is matched to clinical indication); or iterative reconstruction. COMPARISON: CT head wo/w con [id number] 09/24/2023 3:24 PM RADIATION DOSE METRICS: Total DLP (mGy-cm): 1296.58 FINDINGS: Brain: Normal. No hemorrhage. Unremarkable white matter. No mass effect. Cerebral ventricles: No ventriculomegaly. Paranasal sinuses: Visualized sinuses are unremarkable. No fluid levels. Mastoid air cells: Visualized mastoid air cells are well aerated. Bones: Unremarkable. No acute fracture. Soft tissues: Unremarkable. CT/CT head wo con* [id number] IMPRESSION: No large territorial infarct or intracranial bleed.
[2024-08-20 12:09] VITALS: BP 116/75; PULSE 68; RESP 18; O2SAT 98
[2024-08-20 12:12] LABS: Lactic Sepsis W/Reflex 1.1 mmol/L (0.5-2.2)
[2024-08-20 12:13] LABS: Alanine Aminotransferase 26 U/L (0-41); Alkaline Phosphatase 38 U/L (40-130); Aspartate Amino Transferase 17 U/L (0-40); Blood Urea Nitrogen 7 mg/dL (6-20); C Reactive Protein 8.5 mg/L (0.0-4.9); Calcium 9.2 mg/dL (8.5-10.5); Carbon Dioxide 21 mmol/L (22-29); Chloride 103 mmol/L (98-107); Creatinine Clr Calc Pharmacy 219.0741; Globulin 2.8 g/dL (1.3-4.6); Glomerular Filtration Rate 126.2 mL/min (90-130); Glucose 115 mg/dL (65-115); Osmolality Calculated 281 mOsm/kg (285-295); Sodium 136 mmol/L (136-145); Total Bilirubin 0.4 mg/dL (0.15-1.2); Total Protein 6.8 g/dL (6.6-8.7)
[2024-08-20] MEDS: ketorolac 30 mg/mL INJ IVP (13:19)
[2024-08-20] MEDS: cefTRIAXone 1,000 mg SDV 1000 MG IVP (13:22)
[2024-08-20] MEDS: sodium chloride 0.9% 1,000 ML 999 ML IV (13:28)
[2024-08-20 14:51] VITALS: BP 128/70; PULSE 82; O2SAT 98
== END 2024-08-20 16:24 | disposition home or self-care (01) ==
PROVIDERS: Emergency Provider Emergency Medicine; PCP Family Medicine
DX: R51.9 Headache, unspecified (principal); E86.0 Dehydration; R53.1 Weakness; Z79.84 Long term (current) use of oral hypoglycemic drugs; Z11.52 Encounter for screening for COVID-19; E11.9 Type 2 diabetes mellitus without complications; I10 Essential (primary) hypertension
CPT/HCPCS: 36415; 70450; 71045; 80053; 81001; 83605; 85025; 86140; 87040; 87637; 96374; 96375; 99285; J0696; J1885; J7030

== ENCOUNTER 2025-02-24 19:59 | Emergency (ER) | payer MEDICAID, SELFPAY ==
--- NOTE | 2025-02-24 20:15 | ED_ITS ---
HPI - General Adult General: Chief complaint: Back Pain/Injury Stated complaint: BACK PAIN Time Seen by Provider: 02/24/25 20:04 Source: patient Mode of arrival: EMS Limitations: no limitations History of Present Illness: Patient is a 40-year-old male who presents the emergency department complaining of lower back pain. He is from [place], reportedly has had sudden onset of bilateral lower back pain accompanied by dysuria. Denies any saddle anesthesia, recent trauma, fevers, nausea or vomiting, peripheral numbness or weakness, trouble walking, or any bowel or bladder incontinence. Vital stable at this time. MD complaint: Low back pain, dysuria Onset (ago): hour(s) Associated symptoms: Deny chest pain, diaphoresis, dyspnea, headache(s), nausea, rash, palpitations or vomiting Related Data Home Medications ?Medication ?Instructions ?Recorded ?Confirmed atorvastatin 20 mg tablet 20 mg PO DAILY 08/11/2302/10 metformin 1,000 mg tablet 1,000 mg PO BID 08/11/2302/10 nortriptyline 25 mg capsule 50 mg PO BEDTIME 08/11/23 01/23/25 rimegepant 75 mg disintegrating 75 mg PO DAILY PRN cruzito ranes 12/17/23 01/23/25 tablet (Nurtec ODT) pregabalin 150 mg capsule 150 mg PO TID 03/09/2401/23 meclizine 25 mg tablet 25 mg PO DAILY PRN Dizziness Or 08/11/24 01/23/25 Vertigo propranolol 20 mg tablet 20 mg PO BID 08/11/24 Previous Rx's ?Medication ?Instructions ?Recorded cyanocobalamin (vitamin B-12) 1,000 mcg IM DAILY #7 ea 07/29/24 1,000 mcg/mL injection kit galcanezumab-gnlm 120 mg/mL 240 mg (2 mL) SUBCUT ONCE #2 mL 11/17/24 subcutaneous pen injector (Emgality Pen) galcanezumab-gnlm 120 mg/mL 120 mg SUBCUT Q30D #1 mL 0 01/19/25 subcutaneous pen injector (Emgality Pen) duloxetine 60 mg capsule,delayed 120 mg (2 x 60 mg) PO DAILY #30 01/23/25 release caps trazodone 50 mg tablet 100 mg (2 x 50 mg) PO .HS #6 0 tabs 01/23/25 clotrimazole 1 % topical cream 1 applic topical BID #1 5 grams 02/24/25 Allergies Allergy/AdvReac Type Severity Reaction Status Date / Time bee venom protein (honey bee) Allergy Unknown Unknown Verified 01/19/25 13:14 cat dander Allergy Unknown Unknown Verified 01/19/25 13:14 honey Allergy Unknown Unknown Verified 01/19/25 13:14 Review of Systems General: Reports: 10 or more systems reviewed and unremarkable except in HPI and below Const: Denies: fever(s), chills, change in appetite, change in weight or diaphoresis ENMT: Denies: throat pain or hoarseness Card: Denies: chest pain, palpitations or lightheadedness Resp: Denies: dyspnea, productive cough or wheezing GI: Denies: abdominal pain, nausea, vomiting, diarrhea, constipation, bloating, change in stool character or hematochezia : Reports: dysuria; Denies: flank pain, difficulty urinating, urinary frequency or urinary urgency Musc: Reports: back pain; Denies: neck pain Skin/Breast: Denies: rash or new lesions Neuro: Denies: headache(s) or dizziness PFSH ED PFSH: Medical History Ingrown nail of great toe of right foot Psychiatric care Fibromyalgia Peptic ulcer disease Gastroenteritis Hypertension Diabetes mellitus Social History Smoking and tobacco/nicotine status: never used tobacco/nicotine Alcohol intake: never Substance/Drug Use: never Physical Exam Const: COMMON NORMALS: no acute distress, average body habitus, patient oriented x3, alert and well nourished GENERAL APPEARANCE: cooperative and comfortable NUTRITIONAL APPEARANCE: obese morbidly obese ORIENTATION/CONSCIOUSNESS: Yes awake Resp: COMMON NORMALS: normal respiratory effort, No retractions, No use of accessory muscles and clear to auscultation bilaterally AUSCULTATION: clear to auscultation bilaterally, no crackles, no rales, no rhonchi and no wheezes Cardio: COMMON NORMALS: regular rate, regular rhythm, S1 normal heart sound present, S2 normal heart sound present, No gallops present (Cardio), No clicks present (Cardio), No murmurs present (Cardio), No rub (Cardio) and Peripheral pulses 2+ throughout RATE: regular rate RHYTHM: regular rhythm HEART SOUNDS: S1 normal heart sound present and S2 normal heart sound present PERIPHERAL PULSES: Peripheral pulses 2+ throughout GI: COMMON NORMALS: Normal to inspection, nondistended, normoactive bowel sounds present, Soft to palpation, non-tender, No hepatosplenomegaly present and no masses AUSCULTATION: Yes normoactive bowel sounds PALPATION: Yes Soft to palpation, No Guarding due to palpation present (GI), No Rigid due to palpation and Yes No hepatosplenomegaly present RECTAL EXAM: Yes deferred : COMMON NORMALS: Yes no CVA tenderness BLADDER/KIDNEY EXAM: Yes no CVA tenderness PENIS: uncircumcised and erythematous Back/Pelvis: COMMON NORMALS: no CVA tenderness Extremity: COMMON NORMALS: normal to inspection and full ROM Neuro: COMMON NORMALS: patient oriented x3, moves all extremities, no focal motor deficits and no sensory deficits noted SENSORIUM/ORIENTATION: Yes alert Psych: COMMON NORMALS: mental status grossly normal, cooperative and speech normal SPEECH: Yes normal speech Skin: COMMON NORMALS: no rashes or lesions noted GENERAL SKIN EXAM: no rashes or lesions noted Course Vital Signs: Vital signs: Vital Signs Pulse Rate 82 02/24/25 22:06 Respiratory Rate 14 02/24/25 22:06 Blood Pressure 134/77 02/24/25 22:06 Pulse Oximetry 98 02/24/25 22:06 [facility] - General Adult Medical Decision Making Patient present by EMS from [facility] for complaints of back pain and some dysuria. His urine was cleaned of any infection, however states that his pain is more when he is touching his genitals to go to the bathroom. Evaluation of the area shows some erythema, this looks consistent with a c andidal balanitis for which we will prescribe clotrimazole. Otherwise he appeared well, his exam was unremarkable and vitals have been normal. Lab Data Laboratory Results Urine Color Yellow (Yellow) 02/24/25 20:56 Urine Appearance Clear (CLEAR) 02/24/25 20:56 Urine pH 5.5 (5-7) 02/24/25 20:56 Ur Specific [place] 1.017 (1.005-1.030) 02/24/25 20:56 Urine Protein Negative (Negative) 02/24/25 20:56 Urine Glucose (UA) Negative (Normal) 02/24/25 20:56 Urine Ketones Negative (Negative) 02/24/25 20:56 Urine Blood Negative (Negative) 02/24/25 20:56 Urine Nitrate Negative (Negative) 02/24/25 20:56 Urine Bilirubin Negative (Negative) 02/24/25 20:56 Urine Urobilinogen 1.0 mg/dL (Negative) 02/24/25 20:56 Ur Leukocyte Esterase Negative (Negative) 02/24/25 20:56 Urine RBC 0-2 /hpf (0-2) 02/24/25 20:56 Urine WBC 0-5 /hpf (0-5) 02/24/25 20:56 Ur Squamous Epith Cells 0-5 /hpf (0-5) 02/24/25 20:56 Amorphous Sediment Not Reportable 02/24/25 20:56 Urine Bacteria None seen /hpf (NONE) 02/24/25 20:56 Hyaline Casts 2.05 /lpf 02/24/25 20:56 No radiology studies performed this visit Discharge Plan Discharge Patient Disposition: Home Clinical Impression: Candidal balanitis Condition: Stable Prescriptions: New clotrimazole 1 % cream 1 applic topical BID Qty: 15 0RF Rx Instructions: Apply twice daily for 1 to 2 weeks. No Action metformin 1,000 mg tablet 1,000 mg PO BID atorvastatin 20 mg tablet 20 mg PO DAILY nortriptyline 25 mg capsule 50 mg PO BEDTIME Emgality Pen 120 mg/mL pen injector 240 mg SUBCUT ONCE Qty: 2 0RF trazodone 50 mg tablet 100 mg PO .HS Qty: 60 2RF duloxetine 60 mg capsule,delayed release(DR/EC) 120 mg PO DAILY Qty: 30 2RF Nurtec ODT 75 mg tablet,disintegrating 75 mg PO DAILY PRN (Reason: migranes) pregabalin 150 mg capsule 150 mg PO TID Emgality Pen 120 mg/mL pen injector 120 mg SUBCUT Q30D Qty: 1 5RF cyanocobalamin (vitamin B-12) 1,000 mcg/mL kit 1,000 mcg IM DAILY Qty: 7 1RF Rx Instructions: 1000 units IM daily for 3 days then weekly for 4 weeks then monthly meclizine 25 mg Tablet 25 mg PO DAILY PRN (Reason: Dizziness Or Vertigo) propranolol 20 mg tablet 20 mg PO BID Rx Instructions: TAKE 1 TABLET BY MOUTH TWICE A DAY Discharge Orders: Discharge ED (Routine); Ordered 02/24/25 Ordered By: Diomedes Zavala Referrals: Juventino De Santiago DO [Primary Care Provider, Internal Medicine] Patient Instructions: Patient Portal & Dominic Instructions Activity Restrictions/Additional Instructions: Balanitis discharge Diagnosis: Candidal balanitis (yeast irritation of the head of the penis) Medication - Clotrimazole 1% cream: Apply a thin layer to the affected area twice daily (morning and night) for 1 to 2 weeks, or until the rash clears and then 2?3 more days to reduce recurrence. - How to apply: Gently wash with lukewarm water and mild soap, pat dry, then apply a thin film. Do not apply to open cracks or severely irritated skin. Avoid contact with eyes. - What to expect: Itching, redness, and soreness should improve within a few days. If there is no improvement after 2 weeks, or irritation worsens, seek care. - Side effects: Usually mild local stinging or burning; stop and seek care if severe irritation occurs. Hygiene and daily care - Keep the area clean and dry. After bathing, gently retract the foreskin (if present), rinse, and dry completely before replacing the foreskin. - Avoid harsh soaps, deodorant/antibacterial washes, or powders on the glans; use mild, fragrance-free products. - Wear loose, breathable cotton underwear; change daily. - Avoid sexual activity that irritates the area until symptoms improve; using a condom can reduce friction during healing. Partners and prevention - Yeast infections are not typically sexually transmitted. Routine treatment of partners is not recommended. A small number of male partners of women with yeast infections get balanitis and benefit from topical antifungal treatment. - Manage moisture: After exercise or sweating, wash and dry the area. Avoid prolonged damp clothing. When to consider other treatments - Most cases respond to topical azoles such as clotrimazole, miconazole, or nystatin with high cure rates in studies. - If symptoms are severe, recurrent, or not improving after appropriate topical therapy, evaluation is needed to check for contributing factors (e.g., diabetes, occlusion, irritants) and to consider oral therapy (e.g., fluconazole) when appropriate. Oral fluconazole has shown efficacy comparable to topical clotrimazole in trials of cutaneous candidiasis. - Rarely, resistant Chrissie can occur; alternative systemic azoles (e.g., itraconazole) may be considered after medical evaluation and culture. Lower back pain: Self-care and treatment options Many episodes of lower back strain improve over days to weeks. Staying active is important. - Activity - Stay as active as possible; avoid bed rest. Gentle walking and light daily activity help recovery. - Use heat (warm packs or heating pad) 15?20 minutes at a time for pain relief. - Medications (if needed) - [id number] NSAIDs (e.g., ibuprofen or naproxen) can reduce pain short term if safe for the individual (avoid if history of ulcers, kidney disease, certain heart conditions, or anticoagulant use; take with food). - Short-term skeletal muscle relaxants can help some patients but may cause drowsiness; use only if prescribed and for brief periods. - Acetaminophen alone has inconsistent benefit; consider if NSAIDs are not appropriate. - Therapies that can help - Massage, spinal manipulation, or acupuncture may provide short-term benefit for some people. - Consider physical therapy if pain limits function or persists beyond a couple of weeks. - What to avoid - Prolonged bed rest and heavy lifting during the acute phase. - Unnecessary imaging unless red flags are present. Return and emergency precautions Seek urgent care now (call emergency services) if any of the following occur: - Back pain with new weakness, numbness, or trouble walking; loss of bowel or bladder control; or numbness in the groin/saddle area (possible nerve compression). - Fever, chills, or feeling very ill with back pain (possible infection). - Severe, sudden back pain after significant trauma. Contact the clinic soon (within 24?48 hours) if: - Balanitis symptoms are not improving after 7?10 days of clotrimazole, or not resolved by 2 weeks; or there is worsening redness, swelling, pain, cracking, foul odor, or discharge. - Painful urination, inability to retract or replace the foreskin, or swelling of the foreskin develops. - Recurrent episodes of balanitis occur, or there are concerns for diabetes or other conditions that may predispose to yeast. - Back pain persists beyond 2?4 weeks, keeps recurring, or interferes with daily activities despite self-care. Follow-up - If the rash clears, finish at least 1?2 weeks of treatment and continue for a couple of days after the skin looks normal. If symptoms are persistent or recurrent, schedule follow-up for re-evaluation and possible testing or alternative therapy. 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
[2025-02-24 21:05] LABS: Glucose Urine UA Negative (Normal); Nitrate Urine Negative (Negative); Specific Gravity, Urine 1.017 (1.005-1.030)
[2025-02-24 21:09] LABS: Add Urine Microscopic? YES
[2025-02-24 21:18] VITALS: BMI 46.6
[2025-02-24 21:25] VITALS: BP 125/87; PULSE 77; O2SAT 97
[2025-02-24 22:06] VITALS: BP 134/77; PULSE 82; RESP 14; O2SAT 98
== END 2025-02-24 22:08 | disposition home or self-care (01) ==
PROVIDERS: Emergency Provider Physician Assistant; PCP Internal Medicine
DX: B37.42 Candidal balanitis (principal)
CPT/HCPCS: 81001; 99283